=== PATIENT | male | born 1960 | race Caucasian/White ===

== ENCOUNTER → 2022-01-12 08:54 | Outpatient (BNVA) | payer MEDICAID, SELFPAY | PROVIDERS: Family Provider Internal Medicine; Visit Provider Family Medicine | DX: R06.00 Dyspnea, unspecified (principal); R07.9 Chest pain, unspecified | CPT/HCPCS: 71046 ==

== ENCOUNTER 2022-01-12 09:46 | Inpatient (IN) | payer MEDICAID, SELFPAY ==
[2022-01-12] VITALS (12 sets, daily range): BP systolic 116–148; BP diastolic 66–86; PULSE 71–98; RESP 13–27; TEMP 36.4–37.4; O2SAT 98–100; BMI 16.9; BMI 16.8
--- NOTE | 2022-01-12 10:28 | ECG_ITS ---
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 Measurements Intervals [place] Rate: 75 P: 89 NM: 151 QRS: 111 QRSD: 153 T: 68 QT: 453 QTc: 508 Interpretive Statements SINUS RHYTHM WITH OCCASIONAL SUPRAVENTRICULAR PREMATURE COMPLEXES POSSIBLE LEFT ATRIAL ENLARGEMENT [-0.1mV P-WAVE IN V1/V2] INTRAVENTRICULAR CONDUCTION DELAY [130+ ms QRS DURATION] Compared to ECG 03/25/2016 07:43:57 Intraventricular conduction delay now present Sinus bradycardia no longer present Sinus arrhythmia no longer present Incomplete right bundle-branch block no longer present Electronically Signed On 01-12-2022 21:36:55 CDT by Ryne Gonzales M.D. [id number]
--- NOTE | 2022-01-12 10:31 | PC.PHAR ---
pt states he takes care of his own medications-pt states he only takes aspirin three times a week-pt states sometimes he will take asprin 81mg tab or 325mg tab pt states sometimes its mon,wed and fri-
[2022-01-12 10:35] LABS: Basophils % 0.4 %; Eosinophils # 0.3 10^3/uL (0.0-0.8); Eosinophils % 3.4 %; Hematocrit 45.5 % (42.0-52.0); Hemoglobin 15.1 g/dL (11.7-16.6); Lymphocytes # 1.3 10^3/uL (0.8-4.8); Mean Corpuscular HGB Conc 33.2 g/dL (30.0-36.0); Mean Corpuscular Hemoglobin 29.6 pg (28.0-34.0); Mean Corpuscular Volume 89.2 fl (80-94); Mean Platelet Volume 9.5 fL (7.4-10.4); Monocytes # 0.6 10^3/uL (0.2-0.9); Monocytes % 7.4 %; Neutrophils # 5.24 10^3/uL (1.8-7.7); Neutrophils % 70.5 %; Nucleated Red Blood Cells % 0 %; Platelet Count 261 10^3/cmm (130-400); Red Cell Distribution Width 12.8 % (12.1-15.1); White Blood Count 7.4 10^3/uL (4.0-10.0)
[2022-01-12 10:47] LABS: Partial Thromboplastin Time 31.5 SECONDS (23.9-36.7)
[2022-01-12 10:54] LABS: Troponin(5th) Baseline 6 ng/L (0-15)
[2022-01-12 10:56] LABS: Alanine Aminotransferase 12 U/L (0-41); Albumin Level 4.6 g/dL (3.5-5.2); Alkaline Phosphatase 102 IU/L (40-130); Anion Gap 13.9 (5-19); Aspartate Amino Transferase 16 U/L (0-40); Blood Urea Nitrogen 11 mg/dL (6-20); Calcium 9.3 mg/dL (8.5-10.5); Carbon Dioxide 28 mmol/L (22-29); Chloride 101 mmol/L (98-107); Globulin 2.8 g/dL (1.3-4.6); Glomerular Filtration Rate 137.9 mL/min (90-130); Glucose 86 mg/dL (65-115); Osmolality Calculated 287 mOsm/kg (285-295); Potassium 3.9 mmol/L (3.5-5.1); Sodium 139 mmol/L (136-145); Total Bilirubin 0.3 mg/dL (0.15-1.2); Total Protein 7.4 g/dL (6.6-8.7)
--- NOTE | 2022-01-12 11:35 | CT_ITS ---
WS: [id number] CT CHEST WITHOUT INTRAVENOUS CONTRAST HISTORY: Right-sided pneumothorax, chest pain for 2 weeks. TECHNIQUE: Contiguous 5 mm axial imaging performed on the thorax. Coronal and sagittal reformats are submitted. All CT scans at [facility] use at least one of these dose optimization techniques: automated exposure control; mA and/or kV adjustment per patient size (includes targeted exams where dose is matched to clinical indication); or iterative reconstruction. CONTRAST: None DLP: 399.63 mGy.cm COMPARISON: Radiograph 01/12/2022 Lungs and central airway: Changes of emphysema are noted bilaterally. Bullous and bleb formation. Enedina pical pleural thickening and nodularity. There is a more focal nodular thickening at the RIGHT apex m easuring 16 x 13 mm. RIGHT pneumothorax without midline shift from approximately 20-25%. Focal area o f increased soft tissue is minimal along the anterior major fissure measuring 19 x 9 mm. There are a few tree-in-bud airspace opacifications within the LEFT upper lower lobes which will need further evaluation long-term. Pleura: No effusions. Heart and pericardium: Normal size heart with no pericardial effusion. Mediastinum and shanthi: Small mediastinal and hilar lymph nodes. No adenopathy. Vessels: Mild atherosclerosis aorta. Coronary artery atherosclerosis. Prior CABG. Chest wall and lower neck: No soft tissue masses. Upper abdomen: Negative. Osseous structures: No destructive process. CT/CT chest wo con [id number] IMPRESSION: 1. RIGHT pneumothorax without tension, 20-25%. 2. Moderate to severe emphysema. 3. Pleural nodule at the RIGHT apex measures 16 x 13 mm. Additional focal soft tissue nodule along the inferior RIGHT major fissure measuring 19 x 9 mm. Both of these areas will need further evaluation for possible neoplasm. There is ad ditional pleural thickening at the RIGHT apex which appears more scarlike and f ibrotic. PET/CT imaging may be necessary for further evaluation. 4. Prior CABG. 5. There are a few scattered nodules throughout the LEFT lung in a distributio n suggesting tree-in-bud opacification may be related to mucous plugging or dis diana airways disease. These areas will also need long-term follow-up.
--- NOTE | 2022-01-12 11:48 | P.HP_ITS ---
Providers/Chief Complaint Admitting Physician: Aaron Young MD, hospitalist Chief Complaint: Doctor sent over for lung complication History of Present Illness Levi Madrid is a 61 year old male who presents to the hospital with com plaints of chest discomfort. He reports it is right-sided, and low. It is associated with shortness of breath and came on rather severely around 430 this morning. He has not been ill lately with any cough or fever. He reports some intermittent chest discomfort over the last several weeks, on the right side as well but not this bad. He denies any nausea, vomiting, diarrhea, blood in stool, recent trauma. He occasionally has palpitations. Review of Systems General: Reports: 10 or more systems reviewed and unremarkable except in HPI and below Const: Denies: fever(s) or chills Eyes: Denies: change in vision ENMT: Denies: throat pain Card: Reports: chest pain and palpitations Resp: Reports: dyspnea and non-productive cough GI: Denies: abdominal pain, hematochezia or melena : Reports: urinary dribbling; Denies: flank pain Musc: Denies: neck pain Skin/Breast: Denies: rash Neuro: Denies: headache(s) Psych: Denies: anxiety or depression Endo: Denies: polyuria Chung/Lymph: Denies: easy bruising All/Imm: Denies: urticaria Medications/Allergies Home Medications Medication Instructions Recorded Confirmed Last Taken Type aspirin 81 mg tablet,delayed 81 - 324 mg PO .THREE TIMES A WEEK 01/12/22 01/12/22 01/07/22 History release Allergies Allergy/AdvReac Type Severity Reaction Status Date / Time No Known Allergies Allergy Verified 01/12/22 10:30 PFSH Acute PFSH: Medical History (Updated 01/12/22 @ 11:57 by Aaron Young MD) COPD (chronic obstructive pulmonary disease) Coronary artery disease Surgical History (Updated 01/12/22 @ 11:50 by Aaron Young MD) History of coronary artery bypass graft Social History (Updated 01/12/22 @ 11:51 by Aaron Young MD) Smoking and tobacco status: current every day smoker Alcohol intake: never Substance/Drug Use: never Vitals/I&O/Wt Last Vital Signs Temp 97.6 F 01/12/22 09:59 Pulse 72 01/12/22 09:59 Resp 13 01/12/22 09:59 BP 148/83 01/12/22 09:59 Pulse Ox 100 01/12/22 09:59 Weight last 48 hrs Weight 56.699 kg Physical Exam Narrative: General exam demonstrates a white male, in no distress HEENT: Atraumatic normocephalic. Pupils equally round. Oropharynx clear. Neck is supple no lymphadenopathy or thyromegaly Cardiovascular regular rate and rhythm, no murmur Lungs clear no wheezing or crackles. Diminished breath sounds are noted bilaterally Abdomen is soft nontender positive bowel sounds. No obvious organomegaly exam is deferred Extremities no cyanosis clubbing or edema, cap refill brisk Skin no rash Neuro no obvious focal deficits. Data : 01/12/22 10:25 01/12/22 10:25 Other Labs: LFTs are normal. Calcium is 9.3. Troponin 6. Chest x-ray right-sided pneumothorax, around 20% EKG demonstrates sinus rhythm, right axis deviation, left atrial enlargement, few PACs A&P Assessment and plan (1) Pneumothorax: Patient with spontaneous pneumothorax, right chest. N.p.o. currently Pulmonary consult, may need vent CT chest pending Status: Acute (2) Palpitations: Patient with history of palpitations. Keep on telemetry here. Check echocardiogram Status: Acute (3) COPD (chronic obstructive pulmonary disease): DuoNeb as needed Budesonide twice daily. Status: Acute (4) Coronary artery disease: Past history of bypass surgery. Initiate aspirin daily. Lipid profile tomorrow Status: Acute Plan Full code SCDs for DVT prophylaxis. Potential for anticoagulation with Lovenox or heparin after Thora vent placement if okay with pulmonary. Attestations Medical Necessity Statement*: Will need greater than 2 midnight stay for evaluation and treatment of pneumothorax, palpitations Coding Level of Care Code Acute Sr Risk Management Consultant for [facility] F[facility] Diagnoses Pneumothorax J93.9 Palpitations R00.2 COPD (chronic obstructive pulmonary disease) J44.9 Coronary artery disease I25.10
[2022-01-12 12:27] LABS: Thyroid Stimulating Hormone 1.01 uIU/mL (0.27-4.20)
--- NOTE | 2022-01-12 12:28 | ECG_ITS ---
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 Measurements Intervals [place] Rate: 67 P: 87 IN: 156 QRS: 113 QRSD: 149 T: 80 QT: 468 QTc: 496 Interpretive Statements SINUS RHYTHM WITH OCCASIONAL VENTRICULAR PREMATURE COMPLEXES RIGHT AXIS DEVIATION [QRS AXIS > 100] RIGHT BUNDLE BRANCH BLOCK [120+ ms QRS DURATION, UPRIGHT V1, 40+ ms S IN I/aVL/V4/V5/V6] Compared to ECG 01/12/2022 10:37:27 Ventricular premature complex(es) now present Right-axis deviation now present Right bundle-branch block now present Intraventricular conduction delay no longer present Electronically Signed On 01-12-2022 21:41:34 CDT by Ryne Gonzales M.D. [id number]
[2022-01-12 13:26] LABS: Troponin 5 2HR 7.54 ng/L (0-15)
[2022-01-12 14:01] LABS: Troponin 5 2HR Delta 1.54 ABS# (0-10)
--- NOTE | 2022-01-12 14:14 | ED_ITS ---
HPI - SOB/Dyspnea General: Chief Complaint: Shortness of Breath/Dyspnea Stated Complaint: Doctor sent over for lung complication Time Seen by Provider: 01/12/22 09:55 Source: patient Mode of arrival: ambulatory Limitations: no limitations History of Present Illness: HPI Narrative: 61-year-old male presents emergency room with complaints of shortness of breath and pain with inspiration. Last week or so patient has intermittently had shortness of breath and chest discomfort with palpitations and this morning a few hours prior to arrival had sudden onset of worsening shortness of breath and increasing of chest pain. Patient has known history of coronary disease with previous bypass as well as angiography with stenting. Patient proceeded to his primary care doctor took chest x-ray noted to have a 20 to 25% pneumothorax confirmed with radiology. Patient referred to the emergency room. On arrival here he is ambulatory without hypoxia on room air. He has no known history of previous spontaneous pneumothorax MD elicited complaint: shortness of breath, cough, pain with inspiration and chest pain Pertinent past history: COPD Onset (ago): hour(s) Timing: constant Severity: moderate Exacerbating factors: exertion, coughing and inspiration Relieving factors: rest and upright position Known history of: COPD Associated symptoms: Reports chest pain, cough and palpitations; Deny abdominal pain, chest congestion, diaphoresis, dizziness, extremity pain, fever(s), hemoptysis, lightheadedness, myalgias, nausea, orthopnea, paresthesias, polydipsia, polyuria, rash, sense of impending doom, syncope or vomiting Treatment prior to arrival: none Review of Systems Const: Denies: fever(s), chills or diaphoresis ENMT: Denies: throat pain, ear or mastoid pain, nasal discharge or nasal criss estion Card: Reports: chest pain and palpitations; Denies: lightheadedness, syncope or orthopnea Resp: Reports: dyspnea and non-productive cough; Denies: hemoptysis or chest congestion GI: Denies: abdominal pain, nausea or vomiting : Denies: flank pain, dysuria, urinary frequency or urinary urgency Musc: Denies: extremity pain Skin/Breast: Denies: rash or pruritus Neuro: Denies: dizziness Endo: Denies: polyuria or polydipsia PFS ED PFSH: Medical History COPD (chronic obstructive pulmonary disease) Coronary artery disease Surgical History History of coronary artery bypass graft Social History Smoking and tobacco status: current every day smoker Alcohol intake: never Substance/Drug Use: never Physical Exam Const: COMMON NORMALS: no acute distress GENERAL APPEARANCE: cooperative and comfortable ORIENTATION/CONSCIOUSNESS: Yes awake, Yes oriented to person, Yes oriented to place and Yes oriented to time HENMT: COMMON NORMALS: normocephalic, atraumatic and hearing grossly normal bilaterally HEAD & SCALP: normocephalic and atraumatic Neck/C-Spine: COMMON NORMALS: no JVD Chest: COMMONS NORMALS: normal inspection of the chest Resp: COMMON NORMALS: normal respiratory effort, No retractions and No use of accessory muscles AUSCULTATION: diminished lung sounds on the right Cardio: COMMON NORMALS: no JVD, regular rate, regular rhythm and No murmurs present (Cardio) RATE: regular rate RHYTHM: regular rhythm GI: COMMON NORMALS: Soft to palpation and No hepatosplenomegaly present AUSCULTATION: Yes normoactive bowel sounds PALPATION: Yes Soft to palpation, No Tenderness to palpation present (GI), No Guarding due to palpation present (GI) and Yes No hepatosplenomegaly present Extremity: COMMON NORMALS: normal to inspection, capillary refill normal, no clubbing, cyanosis or edema, no calf tenderness and no pedal edema Neuro: SENSORIUM/ORIENTATION: Yes oriented to person, Yes oriented to place and Yes oriented to time Skin: COMMON NORMALS: no rashes or lesions noted GENERAL SKIN EXAM: no rashes or lesions noted Course Vital Signs: Vital signs: Vital Signs Temperature 97.6 F 01/12/22 09:59 Pulse Rate 75 01/12/22 12:34 Respiratory Rate 16 01/12/22 12:34 Blood Pressure 142/86 01/12/22 12:34 Pulse Oximetry 100 01/12/22 12:34 MDM - SOB/Dyspnea Medical Decision Making 2023% pneumothorax on plain chest x-ray discussed with hospitalist as well as with pulmonology on-call they requested a CT they are planning on placing a thoracic vent. Given the patient's history and reports of palpitations will place him on observation for serial cardiac enzymes initial EKG does not show any acute changes Medical Records I reviewed the patient's medical records. Lab Data I reviewed the patient's lab results. : 01/12/22 10:25 01/12/22 10:25 Labs/Radiology: Radiology Impressions Chest CT 01/12/22 11:35 IMPRESSION: 1. RIGHT pneumothorax without tension, 20-25%. 2. Moderate to severe emphysema. 3. Pleural nodule at the RIGHT apex measures 16 x 13 mm. Additional focal soft tissue nodule along the inferior RIGHT major fissure measuring 19 x 9 mm. Both of these areas will need further evaluation for possible neoplasm. There is additional pleural thickening at the RIGHT apex which appears more scarlike and fibrotic. PET/CT imaging may be necessary for further evaluation. 4. Prior CABG. 5. There are a few scattered nodules throughout the LEFT lung in a distribution suggesting tree-in-bud opacification may be related to mucous plugging or distal airways disease. These areas will also need long-term follow-up. Laboratory Results WBC 7.4 10^3/uL (4.0-10.0) 01/12/22 10:25 RBC 5.10 10^6/uL (4.1-5.3) 01/12/22 10:25 Hgb 15.1 g/dL (11.7-16.6) 01/12/22 10:25 Hct 45.5 % (42.0-52.0) 01/12/22 10:25 MCV 89.2 fl (80-94) 01/12/22 10:25 MCH 29.6 pg (28.0-34.0) 01/12/22 10:25 MCHC 33.2 g/dL (30.0-36.0) 01/12/22 10:25 RDW 12.8 % (12.1-15.1) 01/12/22 10:25 Plt Count 261 10^3/cmm (130-400) 01/12/22 10:25 MPV 9.5 fL (7.4-10.4) 01/12/22 10:25 Neut % (Auto) 70.5 % 01/12/22 10:25 Lymph % (Auto) 18.0 % 01/12/22 10:25 [place] % (Auto) 7.4 % 01/12/22 10:25 Eos % (Auto) 3.4 % 01/12/22 10:25 Baso % (Auto) 0.4 % 01/12/22 10:25 Neut # (Auto) 5.24 10^3/uL (1.8-7.7) 01/12/22 10:25 Lymph # (Auto) 1.3 10^3/uL (0.8-4.8) 01/12/22 10:25 [place] # (Auto) 0.6 10^3/uL (0.2-0.9) 01/12/22 10:25 Eos # (Auto) 0.3 10^3/uL (0.0-0.8) 01/12/22 10:25 Baso # (Auto) 0.0 10^3/uL (0.0-0.1) 01/12/22 10:25 Nucleated RBC % (auto) 0 % 01/12/22 10:25 Nucleated RBCs # 0.0 /100WBC 01/12/22 10:25 PT 13.50 SECONDS (12.1-14.9) 01/12/22 10:25 INR 1.00 (0.8-1.2) 01/12/22 10:25 APTT 31.5 SECONDS (23.9-36.7) 01/12/22 10:25 Sodium 139 mmol/L (136-145) 01/12/22 10:25 Potassium 3.9 mmol/L (3.5-5.1) 01/12/22 10:25 Chloride 101 mmol/L (98-107) 01/12/22 10:25 Carbon Dioxide 28 mmol/L (22-29) 01/12/22 10:25 Anion Gap 13.9 (5-19) 01/12/22 10:25 BUN 11 mg/dL (6-20) 01/12/22 10:25 Creatinine 0.6 mg/dL (0.7-1.2) L 01/12/22 10:25 GFR Calculation 137.9 mL/min (90-130) H 01/12/22 10:25 Glucose 86 mg/dL (65-115) 01/12/22 10:25 Calculated Osmolality 287 mOsm/kg (285-295) 01/12/22 10:25 Calcium 9.3 mg/dL (8.5-10.5) 01/12/22 10:25 Magnesium 2.0 mg/dL (1.7-2.3) 01/12/22 10:25 Total Bilirubin 0.3 mg/dL (0.15-1.2) 01/12/22 10:25 AST 16 U/L (0-40) 01/12/22 10:25 ALT 12 U/L (0-41) 01/12/22 10:25 Alkaline Phosphatase 102 IU/L (40-130) 01/12/22 10:25 Troponin T Baseline 6 ng/L (0-15) 01/12/22 10:25 Total Protein 7.4 g/dL (6.6-8.7) 01/12/22 10:25 Albumin 4.6 g/dL (3.5-5.2) 01/12/22 10:25 Globulin 2.8 g/dL (1.3-4.6) 01/12/22 10:25 TSH 1.01 uIU/mL (0.27-4.20) 01/12/22 10:25 Discharge Plan Discharge Patient Disposition: Admitted As Inpatient Admit Provider: Aaron Young Clinical Impression: Spontaneous pneumothorax, COPD (chronic obstructive pulmonary disease), Cor onary artery disease, Palpitations, Chest pain Condition: Stable Coding Level of Care Code ED 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
--- NOTE | 2022-01-12 14:25 | USCV_ITS ---
Levi Madrid Age: 61 Gender: M : 1960 Exam Date: 01/12/2022 14:38 Ordering Phys: Aaron Young MD Technologist: Ronan Herbert Exam Location: [facility] [place] Indication: mi BP: 136 / 86 HR: 54 Rhythm: Sinus Technical Quality: Adequate MEASUREMENTS (Male / Female) Normal Values 2D ECHO LV Diastolic Diameter PLAX 4.7 cm 4.2 - 5.9 / 3.9 - 5.3 cm LV Systolic Diameter PLAX 4.0 cm IVS Diastolic Thickness 1.1 cm 0.6 - 1.0 / 0.6 - 0.9 cm IVS Systolic Thickness 1.1 cm LVPW Diastolic Thickness 1.0 cm 0.6 - 1.0 / 0.6 - 0.9 cm LVPW Systolic Thickness 1.2 cm LVOT Diameter 2.1 cm LV Ejection Fraction 2D Teich 18.9 % LA Diameter 2.5 cm Aorta at Sinotubular Diameter 2.5 cm IVC Diameter 1.2 cm M-MODE Aortic Annulus Diameter 3.2 cm LA Ao Ratio MM 0.9 MV E Point Septal Separation 1.4 cm DOPPLER AV Peak Velocity 108.7 cm/s LVOT Peak Velocity 84.0 cm/s AV Area Cont Eq vti 2.8 cm squared AV Area Cont Eq pk 2.7 cm squared MV Area PHT 5.0 cm squared Mitral E to A Ratio 1.1 MV E' Velocity 39.5 cm/s Mitral E to MV E' Ratio 9.5 Mitral E to LV E' Lateral Ratio 10.9 Mitral E to LV E' Septal Ratio 8.5 TR Peak Velocity 132.7 cm/s TR Peak Gradient 7.0 mmHg TV Peak E Velocity 72.0 cm/s Right Atrial Pressure 3.0 mmHg Pulmonary Artery Systolic Pressu 10.0 mmHg PV Peak Velocity 137.0 cm/s FINDINGS Left Ventricle Normal left ventricular size. LV systolic function is severely reduced with EF of 15-20%. Severe global hypokinesis. Septal motion is consistent with prior cardiac surgery. Apical thickening is noted Right Ventricle The right ventricle is mildly hypokinetic Right Atrium The right atrium is normal in size. Left Atrium The left atrium is normal in size. Mitral Valve Structurally normal mitral valve without significant stenosis or prolapse. There is no mitral regurgitation. Aortic Valve Aortic valve thickening is seen. No stenosis is noted Tricuspid Valve Structurally normal tricuspid valve without significant stenosis or regurgitation. Insufficient TR jet to calculate RVSP Pulmonic Valve Grossly normal Pericardium Normal pericardium without effusion. Aorta Normal ascending aorta dimension. CONCLUSIONS LV systolic function is severely reduced with EF of 15-20%. Apical thickening is seen. Can not rule out LV thrombus. Recommend limited echo with contrast to rule out LV thrombus RV is mildly hypokinetic No significant valvular disease seen Compared to prior echocardiogram from 12/22/2014, LV systolic function is significantly decreased now and is 15-20% ( from 40- 45% before) Sandro Macias MD (Electronically Signed) Final Date: 13 Jan 2022 07:56 S
[2022-01-12] MEDS: D5-NS 0.45% + KCL 20 mEq 20 MEQ/1,000 ML BAG 100 MEQ IV (15:45)
--- NOTE | 2022-01-12 16:28 | ECG_ITS ---
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 Measurements Intervals [place] Rate: 65 P: 88 OK: 153 QRS: 114 QRSD: 149 T: 70 QT: 444 QTc: 464 Interpretive Statements Normal sinus rhythm with right bundle branch block ABNORMAL RHYTHM ECG Compared to ECG 01/12/2022 13:37:04 Sinus rhythm no longer present Ventricular premature complex(es) no longer present Right-axis deviation no longer present Right bundle-branch block no longer present Electronically Signed On 01-12-2022 21:51:01 CDT by Ryne Gonzales M.D. [id number]
[2022-01-12 17:07] LABS: Troponin 5 6HR 8.84 ng/L (0-15)
[2022-01-12 17:17] LABS: Troponin 5 6HR Delta 2.84 ng/L (0-12)
[2022-01-12 17:26] LABS: Add Urine Microscopic? NO; Charge for UA Resulting for Rev
[2022-01-12 17:28] LABS: Bilirubin Urine Neg (Negative); Blood Urine Neg (Negative); Glucose Urine UA Norm (Normal); Ketones Urine Negative (Negative); Leukocyte Esterase Urine Negative (Negative); Nitrate Urine Negative (Negative); Protein Urine Neg (Negative); Specific Gravity, Urine 1.015 (1.005-1.030); Urine Appearance Clear (CLEAR); Urine Color Yellow (Yellow); Urobilinogen Urine Norm (Negative); pH Urine 7 (5-7)
--- NOTE | 2022-01-12 17:42 | P.CONIM_ITS ---
Providers/Reason For Consult Consulting Physician/Specialty*: Guero Chiang MD/Pulmonary Critical Care Reason for Consult*: Right pneumothorax Requesting Physician: Tomas Barahona MD Attending Physician: Aaron Young MD History of Present Illness History of Present Illness Levi Madrid is a 61 year old male with past medical history of COPD, CAD s/p CABG sent by his PCP today morning to ER for pleuritic chest pain as well as right upper quadrant pain that began at 4:30 AM. Patient denied any shortness of breath, fever, chills, cough, nausea, vomiting, diarrhea, trauma. On arrival patient had a chest x-ray around 9 AM which showed 20% right-sided pneumothorax. Patient did not appear in respiratory distress-he was placed on 1 L nasal cannula saturations 97%. Subsequent chest CT performed after 3 hours at 12 PM percent right pneumothorax with tension. There is moderate to severe emphysema. There is a pleural nodule at the right apex ?measures 16 x 13 mm. A dditional focal soft tissue nodule along the inferior RIGHT major fissure measuring 19 x 9 mm. Both of these areas will need further evaluation for possible neoplasm. There is additional pleural thickening at the RIGHT apex which appears more scarlike and fibrotic. Pulmonary consulted for right-sided pneumothorax. Patient had a three-vessel CABG in on 05/16/2015. Postoperatively he did well from a hemodynamic standpoint. He was noted to have bilateral apical pneumothoraces. Right was larger than left. These were observed for several days, though the right became larger and therefore on May 21 a right thoracic vent was placed. There was minimal right pneumothorax left. The small left apical pneumothorax has been very stable. His ICU stay was uneventful other than the pulmonary issues which have been described. While on the [facility] he continues to do well. The right thoracic vent was removed on the day of discharge 05/25/2015 and his chest x-ray has remained stable with small apical pneumothoraces. Patient seen in the emergency room and again in cardiac stepdown unit Lying comfortably in his bed watching television -complaining some right-sided chest discomfort denied any respiratory distress Reported smoking 1 pack/day for several years Medications/Allergies Home Medications Medication Instructions Recorded Confirmed Last Taken Type aspirin 81 mg tablet,delayed 81 - 324 mg PO .THREE TIMES A WEEK 01/12/22 01/12/22 01/07/22 History release Allergies Allergy/AdvReac Type Severity Reaction Status Date / Time No Known Allergies Allergy Verified 01/12/22 10:30 PFSH Acute PFSH: Medical History COPD (chronic obstructive pulmonary disease) Coronary artery disease Surgical History History of coronary artery bypass graft Social History Smoking and tobacco status: current every day smoker Alcohol intake: never Substance/Drug Use: never Vitals/I&O/Wt Last Vital Signs Temp 97.5 F L 01/12/22 15:53 Pulse 80 01/12/22 16:00 Resp 17 01/12/22 16:00 BP 117/76 01/12/22 15:53 Pulse Ox 98 01/12/22 16:00 01/12/22 01/12/22 01/12/22 06:59 14:59 22:59 Output Total 100 / 100 Balance -100 / -100 Weight last 48 hrs Weight 124 lb Weight 125 lb Physical Exam Narrative: General: alert, NAD HEENT: conj clear, EOMI, PERRL, mmm, Neck: supple, no meningismus Heme: no cervical LAP Pulmonary: Reduced breath sounds on right upper lung Cardiovascular: rrr, nl s1s2, no mrg Abdomen: soft, nt, nd, no r/g, bs+ Extremities: pulses +, no edema, no c/c : no CVA tenderness Skin: intact, no rash MSK: no back or neck pain Neurologic: grossly intact Data : 01/12/22 10:25 01/12/22 10:25 Other Labs: Radiology Impressions Chest CT 01/12/22 11:35 IMPRESSION: 1. RIGHT pneumothorax without tension, 20-25%. 2. Moderate to severe emphysema. 3. Pleural nodule at the RIGHT apex measures 16 x 13 mm. Additional focal soft tissue nodule along the inferior RIGHT major fissure measuring 19 x 9 mm. Both of these areas will need further evaluation for possible neoplasm. There is additional pleural thickening at the RIGHT apex which appears more scarlike and fibrotic. PET/CT imaging may be necessary for further evaluation. 4. Prior CABG. 5. There are a few scattered nodules throughout the LEFT lung in a distribution suggesting tree-in-bud opacification may be related to mucous plugging or distal airways disease. These areas will also need long-term follow-up. Laboratory Results WBC 7.4 10^3/uL (4.0-10.0) 01/12/22 10:25 RBC 5.10 10^6/uL (4.1-5.3) 01/12/22 10:25 Hgb 15.1 g/dL (11.7-16.6) 01/12/22 10:25 Hct 45.5 % (42.0-52.0) 01/12/22 10:25 MCV 89.2 fl (80-94) 01/12/22 10:25 MCH 29.6 pg (28.0-34.0) 01/12/22 10:25 MCHC 33.2 g/dL (30.0-36.0) 01/12/22 10:25 RDW 12.8 % (12.1-15.1) 01/12/22 10:25 Plt Count 261 10^3/cmm (130-400) 01/12/22 10:25 MPV 9.5 fL (7.4-10.4) 01/12/22 10:25 Neut % (Auto) 70.5 % 01/12/22 10:25 Lymph % (Auto) 18.0 % 01/12/22 10:25 [place] % (Auto) 7.4 % 01/12/22 10:25 Eos % (Auto) 3.4 % 01/12/22 10:25 Baso % (Auto) 0.4 % 01/12/22 10:25 Neut # (Auto) 5.24 10^3/uL (1.8-7.7) 01/12/22 10:25 Lymph # (Auto) 1.3 10^3/uL (0.8-4.8) 01/12/22 10:25 [place] # (Auto) 0.6 10^3/uL (0.2-0.9) 01/12/22 10:25 Eos # (Auto) 0.3 10^3/uL (0.0-0.8) 01/12/22 10:25 Baso # (Auto) 0.0 10^3/uL (0.0-0.1) 01/12/22 10:25 Nucleated RBC % (auto) 0 % 01/12/22 10:25 Nucleated RBCs # 0.0 /100WBC 01/12/22 10:25 PT 13.50 SECONDS (12.1-14.9) 01/12/22 10:25 INR 1.00 (0.8-1.2) 01/12/22 10:25 APTT 31.5 SECONDS (23.9-36.7) 01/12/22 10:25 Sodium 139 mmol/L (136-145) 01/12/22 10:25 Potassium 3.9 mmol/L (3.5-5.1) 01/12/22 10:25 Chloride 101 mmol/L (98-107) 01/12/22 10:25 Carbon Dioxide 28 mmol/L (22-29) 01/12/22 10:25 Anion Gap 13.9 (5-19) 01/12/22 10:25 BUN 11 mg/dL (6-20) 01/12/22 10:25 Creatinine 0.6 mg/dL (0.7-1.2) L 01/12/22 10:25 GFR Calculation 137.9 mL/min (90-130) H 01/12/22 10:25 Glucose 86 mg/dL (65-115) 01/12/22 10:25 Calculated Osmolality 287 mOsm/kg (285-295) 01/12/22 10:25 Calcium 9.3 mg/dL (8.5-10.5) 01/12/22 10:25 Magnesium 2.0 mg/dL (1.7-2.3) 01/12/22 10:25 Total Bilirubin 0.3 mg/dL (0.15-1.2) 01/12/22 10:25 AST 16 U/L (0-40) 01/12/22 10:25 ALT 12 U/L (0-41) 01/12/22 10:25 Alkaline Phosphatase 102 IU/L (40-130) 01/12/22 10:25 Troponin T Baseline 6 ng/L (0-15) 01/12/22 10:25 Troponin T 120 Minute 7.54 ng/L (0-15) 01/12/22 12:45 Delta Troponin T 1.54 ABS# (0-10) 01/12/22 12:45 Troponin T Hi Sens 6Hr 8.84 ng/L (0-15) 01/12/22 16:30 Troponin T Hi Sens 6Hr Delta 2.84 ng/L (0-12) 01/12/22 16:30 Total Protein 7.4 g/dL (6.6-8.7) 01/12/22 10:25 Albumin 4.6 g/dL (3.5-5.2) 01/12/22 10:25 Globulin 2.8 g/dL (1.3-4.6) 01/12/22 10:25 TSH 1.01 uIU/mL (0.27-4.20) 01/12/22 10:25 Urine Color Yellow (Yellow) 01/12/22 14:17 Urine Appearance Clear (CLEAR) 01/12/22 14:17 Urine pH 7 (5-7) 01/12/22 14:17 Ur Specific [place] 1.015 (1.005-1.030) 01/12/22 14:17 Urine Protein Neg (Negative) 01/12/22 14:17 Urine Glucose (UA) Norm (Normal) 01/12/22 14:17 Urine Ketones Negative (Negative) 01/12/22 14:17 Urine Blood Neg (Negative) 01/12/22 14:17 Urine Nitrate Negative (Negative) 01/12/22 14:17 Urine Bilirubin Neg (Negative) 01/12/22 14:17 Urine Urobilinogen Norm mg/dL (Negative) 01/12/22 14:17 Ur Leukocyte Esterase Negative (Negative) 01/12/22 14:17 A&P Assessment and plan (1) Spontaneous pneumothorax: Status: Acute (2) COPD (chronic obstructive pulmonary disease): Status: Acute (3) Coronary artery disease: Status: Acute (4) Right-sided chest pain: Status: Acute Plan #Spontaneous secondary pneumothorax patient with underlying bullous emphysema #History of bilateral pneumothoraxes 3 Days after CABG-requiring thoravent for evacuation of right neumothorax - chest x ray today morning : 20% right apical ptx - CT chest 3 hrs later - No significant change in 20-25% ptx - there appears to be pleural stranding - Repeat CXR in the evening stable - pt is hemodynamically stable and comfortably breathing on 2L nc saturating >90% - I will monitor with serial chest x ray in am - if pt decompensates during night - increasing dyspnea, chest pain or worseing saturations or vitals - we will do stat CXR and consider chest tube placement - pt and RN understand the plan and agree with plan -Morphine every 4 hours as needed/Percocet every 4 hours as needed #CT showed Pleural nodule at the RIGHT apex measures 16 x 13 mm. Additional focal soft tissue nodule along the inferior RIGHT major fissure measuring 19 x 9 mm. There is additional pleural thickening at the RIGHT apex which appears more scarlike and fibrotic. - PET/CT imaging as out pt and will plan for bronchoscopy and biopsies as out pt, # COPD in chronic smoker #Exertional shortness of breath and patient with significant smoking history- Possible COPD and CAD #Significant cardiac history with CAD s/p 3 Vessel CABG 2014 - [facility] 2-no reported exacerbations-group B -PFTs/6-minute walk test as out pt -DuoNebs every 8 hours scheduled while in the hospital -Given prescription for Spiriva 2.5 MCG 2 puffs daily as out pt -Counseled to quit smoking-patient agreed to try to quit -Recommended to stay up-to-date with flu shot and pneumonia at the office -We will refer to pulmonary rehab post PFTs -Follows up with cardiology for CABG Medical condition, labs, investigations, medications, counseling regarding medication compliance, side effects, importance of follow-up appointments, smo anisha-its adverse effects and importance of cessation and plan of care-everything explained in detail to the patient. Patient verbalized understanding and agreed with the plan of care. Recommendations conveyed to hospitalist, RN taking care of the patient - Consult Attestations Medical Necessity Statement: Spontaneous right-sided pneumothorax-need close monitoring for the next 24 to 48 hours Time Spent in Patient Care: Greater than 35 minutes (>than 50% of time spent in counselling and/or direct pt care on unit) . Critical Care Time: The high probability of a clinically significant, sudden or life threatening deterioration of the patient's [pulmonary system(s) required my full and direct attention, intervention and personal management. The critical care time is as shown. This time is in addition to time spent performing any reported procedures but includes the following: [x] Data and vital sign review and interpretation [x] Patient assessment, examination and intervention [x] Documentation [x] Medication orders and management Critical Care Time (min): 55 Coding Level of Care Code New Pt Acute Rug Renovator for Chg Fwd Patient Type New History Comprehensive Exam Comprehensive Medical Decision Making Moderate Complexity Diagnoses Spontaneous pneumothorax J93.83 COPD (chronic obstructive pulmonary disease) J44.9 Coronary artery disease I25.10 Right-sided chest pain R07.9 Time Spent (min) 55
[2022-01-12] MEDS: D5-NS 0.45% + KCL 20 mEq 20 MEQ/1,000 ML BAG 50 MEQ IV (18:55)
--- NOTE | 2022-01-12 19:34 | PC.NURSE ---
Admit Note Patient admitted to room 103 from ER via wheelchair. Covering service notified. Patient presents with shortness of breath and difficulty breathing. Orders reviewed & will continue to monitor. Patient and/or medical representative oriented to environment, equipment, and informed of the following as found in the admission booklet: patient rights & responsibilities, visitor policy, hand and respiratory hygiene practice,call light provided. Other education includes: portable chest xray, master yacht consult and ivf. Patient and/or medical representative verbalizes understanding.
--- NOTE | 2022-01-12 20:00 | XR_ITS ---
WS: [id number] XR chest 1V portable [id number] REASON FOR EXAM: ff-up pneumothorax FINDINGS: The right pneumothorax demonstrated 01/12/2022 at 9:11 AM has not changed significantly in volume. No other interval change or new finding is identified. XR/XR chest 1V portable [id number] IMPRESSION: Stable abnormal chest as above.
[2022-01-12] MEDS: budesonide 0.5 mg/2 mL Neb INHALATION (21:00)
[2022-01-12] MEDS: ipratropium-albuterol 3 mL Neb INHALATION (21:00)
[2022-01-13] VITALS (17 sets, daily range): BP systolic 98–138; BP diastolic 64–81; PULSE 68–89; RESP 16–24; TEMP 36.6–37; O2SAT 93–97
--- NOTE | 2022-01-13 03:50 | PC.NURSE ---
Patient has slept well this night. No complaints of increased pain or shortness of breath. No distress observed. VS remained WNL. Will continue to monitor.
[2022-01-13] MEDS: ipratropium-albuterol 3 mL Neb INHALATION ×4 (03:54→21:42)
[2022-01-13 05:18] LABS: Basophils % 0.2 %; Eosinophils # 0.3 10^3/uL (0.0-0.8); Eosinophils % 3.9 %; Hematocrit 45.9 % (42.0-52.0); Hemoglobin 15.1 g/dL (11.7-16.6); Lymphocytes # 1.6 10^3/uL (0.8-4.8); Lymphocytes % 19.9 %; Mean Corpuscular HGB Conc 32.9 g/dL (30.0-36.0); Mean Corpuscular Hemoglobin 29.3 pg (28.0-34.0); Mean Corpuscular Volume 89.1 fl (80-94); Mean Platelet Volume 9.9 fL (7.4-10.4); Monocytes # 0.7 10^3/uL (0.2-0.9); Monocytes % 8.8 %; Neutrophils # 5.38 10^3/uL (1.8-7.7); Nucleated Red Blood Cells % 0 %; Platelet Count 247 10^3/cmm (130-400); Red Blood Count 5.15 10^6/uL (4.1-5.3); Red Cell Distribution Width 12.9 % (12.1-15.1)
[2022-01-13 05:36] LABS: Anion Gap 15.2 (5-19); Blood Urea Nitrogen 13 mg/dL (6-20); Carbon Dioxide 25 mmol/L (22-29); Chloride 99 mmol/L (98-107); Chol HDL Ratio 4.19 mg/dL (1.0-5.00); Cholesterol 176 mg/dL (0-200); Glomerular Filtration Rate 137.9 mL/min (90-130); Glucose 110 mg/dL (65-115); HDL Cholesterol 42 mg/dL (60-100); LDL Cholesterol Calculated 117 mg/dL (50-129); LDL HDL Ratio 2.79 RATIO (0.00-3.22); Osmolality Calculated 281 mOsm/kg (285-295); Potassium 4.2 mmol/L (3.5-5.1); Sodium 135 mmol/L (136-145); Triglycerides 85 mg/dL (0-150)
--- NOTE | 2022-01-13 06:00 | XR_ITS ---
WS: [id number] XR chest 1V portable [id number] REASON FOR EXAM: ff-up pneumothorax FINDINGS: The right pneumothorax may be somewhat decreased in volume (lung apex now visible above posterior rig ht fourth rib) compared to previous examination of 01/12/2022. No other interval change or new finding. XR/XR chest 1V portable [id number] IMPRESSION: Possible decrease in volume of right pneumothorax as above
[2022-01-13] MEDS: aspirin 81 mg EC Tablet PO (08:37)
[2022-01-13] MEDS: oxyCODONE-APAP 5-325 mg Tablet 1 TAB PO (08:41)
[2022-01-13] MEDS: D5-NS 0.45% + KCL 20 mEq 20 MEQ/1,000 ML BAG 50 MEQ IV (08:42)
[2022-01-13] MEDS: budesonide 0.5 mg/2 mL Neb INHALATION ×2 (09:28→21:42)
--- NOTE | 2022-01-13 09:50 | P.PN_ITS ---
Subjective Subjective: -Patient seen at bedside -Saturating 97% on room air -Uneventful overnight and patient reported sleeping well -Reported on deep breathing his chest pain is less severe than yesterday -Chest x-ray showed possible decrease in volume of right pneumothorax -Other labs and imaging reviewed-echo showed a severely reduced EF with apical thickening and possible LV thrombus. Patient does not appear to be volume overloaded. Cardiology to follow-up Medications: Reviewed: Yes Vitals/I&O/Wt Last Vital Signs Temp 98.2 F 01/13/22 03:38 Pulse 89 01/13/22 09:33 Resp 17 01/13/22 09:28 BP 136/66 01/13/22 03:38 Pulse Ox 97 01/13/22 09:28 01/12/22 01/13/22 01/13/22 22:59 06:59 14:59 Intake Total 531.666 / 531.666 650.833 / 650.833 Output Total 300 / 300 700 / 1000 Balance 231.666 / 231.666 -700 / -468.334 650.833 / 650.833 Weight last 48 hrs Weight 124 lb Weight 125 lb Physical Exam Narrative: General: alert, NAD HEENT: conj clear, EOMI, PERRL, mmm, Neck: supple, no meningismus Heme: no cervical LAP Pulmonary: Improving breath sounds on right side Cardiovascular: rrr, nl s1s2, no mrg Abdomen: soft, nt, nd, no r/g, bs+ Extremities: pulses +, no edema, no c/c : no CVA tenderness Skin: intact, no rash MSK: no back or neck pain Neurologic: grossly intact Data : 01/13/22 04:15 01/13/22 04:15 Other Labs: Radiology Impressions Chest CT 01/12/22 11:35 IMPRESSION: 1. RIGHT pneumothorax without tension, 20-25%. 2. Moderate to severe emphysema. 3. Pleural nodule at the RIGHT apex measures 16 x 13 mm. Additional focal soft tissue nodule along the inferior RIGHT major fissure measuring 19 x 9 mm. Both of these areas will need further evaluation for possible neoplasm. There is additional pleural thickening at the RIGHT apex which appears more scarlike and fibrotic. PET/CT imaging may be necessary for further evaluation. 4. Prior CABG. 5. There are a few scattered nodules throughout the LEFT lung in a distribution suggesting tree-in-bud opacification may be related to mucous plugging or distal airways disease. These areas will also need long-term follow-up. Chest X-Ray 01/13/22 06:00 IMPRESSION: Possible decrease in volume of right pneumothorax as above Laboratory Results WBC 8.0 10^3/uL (4.0-10.0) 01/13/22 04:15 RBC 5.15 10^6/uL (4.1-5.3) 01/13/22 04:15 Hgb 15.1 g/dL (11.7-16.6) 01/13/22 04:15 Hct 45.9 % (42.0-52.0) 01/13/22 04:15 MCV 89.1 fl (80-94) 01/13/22 04:15 MCH 29.3 pg (28.0-34.0) 01/13/22 04:15 MCHC 32.9 g/dL (30.0-36.0) 01/13/22 04:15 RDW 12.9 % (12.1-15.1) 01/13/22 04:15 Plt Count 247 10^3/cmm (130-400) 01/13/22 04:15 MPV 9.9 fL (7.4-10.4) 01/13/22 04:15 Neut % (Auto) 67.0 % 01/13/22 04:15 Lymph % (Auto) 19.9 % 01/13/22 04:15 [place] % (Auto) 8.8 % 01/13/22 04:15 Eos % (Auto) 3.9 % 01/13/22 04:15 Baso % (Auto) 0.2 % 01/13/22 04:15 Neut # (Auto) 5.38 10^3/uL (1.8-7.7) 01/13/22 04:15 Lymph # (Auto) 1.6 10^3/uL (0.8-4.8) 01/13/22 04:15 [place] # (Auto) 0.7 10^3/uL (0.2-0.9) 01/13/22 04:15 Eos # (Auto) 0.3 10^3/uL (0.0-0.8) 01/13/22 04:15 Baso # (Auto) 0.0 10^3/uL (0.0-0.1) 01/13/22 04:15 Nucleated RBC % (auto) 0 % 01/13/22 04:15 Nucleated RBCs # 0.0 /100WBC 01/13/22 04:15 PT 13.50 SECONDS (12.1-14.9) 01/12/22 10:25 INR 1.00 (0.8-1.2) 01/12/22 10:25 APTT 31.5 SECONDS (23.9-36.7) 01/12/22 10:25 Sodium 135 mmol/L (136-145) L 01/13/22 04:15 Potassium 4.2 mmol/L (3.5-5.1) 01/13/22 04:15 Chloride 99 mmol/L (98-107) 01/13/22 04:15 Carbon Dioxide 25 mmol/L (22-29) 01/13/22 04:15 Anion Gap 15.2 (5-19) 01/13/22 04:15 BUN 13 mg/dL (6-20) 01/13/22 04:15 Creatinine 0.6 mg/dL (0.7-1.2) L 01/13/22 04:15 GFR Calculation 137.9 mL/min (90-130) H 01/13/22 04:15 Glucose 110 mg/dL (65-115) 01/13/22 04:15 Calculated Osmolality 281 mOsm/kg (285-295) L 01/13/22 04:15 Calcium 9.0 mg/dL (8.5-10.5) 01/13/22 04:15 Magnesium 2.0 mg/dL (1.7-2.3) 01/12/22 10:25 Total Bilirubin 0.3 mg/dL (0.15-1.2) 01/12/22 10:25 AST 16 U/L (0-40) 01/12/22 10:25 ALT 12 U/L (0-41) 01/12/22 10:25 Alkaline Phosphatase 102 IU/L (40-130) 01/12/22 10:25 Troponin T Baseline 6 ng/L (0-15) 01/12/22 10:25 Troponin T 120 Minute 7.54 ng/L (0-15) 01/12/22 12:45 Delta Troponin T 1.54 ABS# (0-10) 01/12/22 12:45 Troponin T Hi Sens 6Hr 8.84 ng/L (0-15) 01/12/22 16:30 Troponin T Hi Sens 6Hr Delta 2.84 ng/L (0-12) 01/12/22 16:30 Total Protein 7.4 g/dL (6.6-8.7) 01/12/22 10:25 Albumin 4.6 g/dL (3.5-5.2) 01/12/22 10:25 Globulin 2.8 g/dL (1.3-4.6) 01/12/22 10:25 Triglycerides 85 mg/dL (0-150) 01/13/22 04:15 Cholesterol 176 mg/dL (0-200) 01/13/22 04:15 LDL Cholesterol, Calc 117 mg/dL (50-129) 01/13/22 04:15 HDL Cholesterol 42 mg/dL (60-100) L 01/13/22 04:15 LDL/HDL Ratio 2.79 RATIO (0.00-3.22) 01/13/22 04:15 Cholesterol/HDL Ratio 4.19 mg/dL (1.0-5.00) 01/13/22 04:15 TSH 1.01 uIU/mL (0.27-4.20) 01/12/22 10:25 Urine Color Yellow (Yellow) 01/12/22 14:17 Urine Appearance Clear (CLEAR) 01/12/22 14:17 Urine pH 7 (5-7) 01/12/22 14:17 Ur Specific [place] 1.015 (1.005-1.030) 01/12/22 14:17 Urine Protein Neg (Negative) 01/12/22 14:17 Urine Glucose (UA) Norm (Normal) 01/12/22 14:17 Urine Ketones Negative (Negative) 01/12/22 14:17 Urine Blood Neg (Negative) 01/12/22 14:17 Urine Nitrate Negative (Negative) 01/12/22 14:17 Urine Bilirubin Neg (Negative) 01/12/22 14:17 Urine Urobilinogen Norm mg/dL (Negative) 01/12/22 14:17 Ur Leukocyte Esterase Negative (Negative) 01/12/22 14:17 A&P Assessment and plan (1) Spontaneous pneumothorax: Status: Acute (2) COPD (chronic obstructive pulmonary disease): Status: Acute (3) Coronary artery disease: Status: Acute (4) Right-sided chest pain: Status: Acute Plan #Spontaneous secondary pneumothorax patient with underlying bullous emphysema #History of bilateral pneumothoraxes 3 Days after CABG-requiring thoravent for evacuation of right neumothorax - chest x ray today on admission: 20% right apical ptx;- CT chest 3 hrs later - No significant change in 20-25% ptx - there appears to be pleural stranding;- pt is hemodynamically stable and comfortably breathing -Today morning Chest x-ray (24-hour since admission) possible decrease in volume of right pneumothorax -Patient saturating 97% on room air; Uneventful overnight and patient reported sleeping well -Reported on deep breathing his chest pain is less severe than yesterday -I will follow-up in pulmonary clinic in 1 week with follow-up chest x-ray #CT showed Pleural nodule at the RIGHT apex measures 16 x 13 mm. Additional focal soft tissue nodule along the inferior RIGHT major fissure measuring 19 x 9 mm. There is additional pleural thickening at the RIGHT apex which appears more scarlike and fibrotic. - PET/CT imaging as out pt and will plan for bronchoscopy and biopsies as out pt, # COPD in chronic smoker #Exertional shortness of breath and patient with significant smoking history- Possible COPD and CAD #Significant cardiac history with CAD s/p 3 Vessel CABG 2014 - [facility] 2-no reported exacerbations-group B -PFTs/6-minute walk test as out pt -DuoNebs every 8 hours scheduled while in the hospital -Given prescription for Spiriva 2.5 MCG 2 puffs daily as out pt -Counseled to quit smoking-patient agreed to try to quit -Recommended to stay up-to-date with flu shot and pneumonia at the office -We will refer to pulmonary rehab post PFTs -Follows up with cardiology for CABG #Echo showed reduced EF 15 to 20% with apical thickening-cannot rule out LV thrombus -Recommended limited echo with contrast to rule out LV thrombus and RV is mildly hypokinetic -Patient is clinically not volume overloaded -Cardiology to follow-up Medical condition, labs, investigations, medications, counseling regarding medication compliance, side effects, importance of follow-up appointments, smoking-its adverse effects and importance of cessation and plan of care-everyth ing explained in detail to the patient. Patient verbalized understanding and agreed with the plan of care. Recommendations conveyed to hospitalist, RN taking care of the patient Attestations Medical Necessity Statement*: Deferred to hospitalist Time Spent in Patient Care: Greater than 35 minutes (>than 50% of time spent in counselling and/or direct pt care on unit) . Critical Care Time: The high probability of a clinically significant, sudden or life threatening deterioration of the patient's [pulmonary system(s) required my full and direct attention, intervention and personal management. The critical care time is as shown. This time is in addition to time spent performin g any reported procedures but includes the following: [x] Data and vital sign review and interpretation [x] Patient assessment, examination and intervention [x] Documentation [x] Medication orders and management Critical Care Time (min): 45 Coding Level of Care Code Established Pt Acute Import Clerk for Chg Fwd Patient Type Established History Comprehensive Exam Comprehensive Medical Decision Making Moderate Complexity Diagnoses Spontaneous pneumothorax J93.83 COPD (chronic obstructive pulmonary disease) J44.9 Coronary artery disease I25.10 Right-sided chest pain R07.9 Time Spent (min) 45
--- NOTE | 2022-01-13 10:54 | P.PN_ITS ---
Subjective Subjective: tIz reports the pain in his right chest is much better. Not significantly short of breath. No nausea. Medications: Reviewed: Yes Vitals/I&O/Wt Last Vital Signs Temp 98 F 01/13/22 08:00 Pulse 89 01/13/22 09:33 Resp 17 01/13/22 09:28 BP 137/64 01/13/22 08:00 Pulse Ox 97 01/13/22 09:28 01/12/22 01/13/22 01/13/22 22:59 06:59 14:59 Intake Total 531.666 / 838.360 4220.833 / 1010.833 Output Total 300 / 300 700 / 1000 480 / 480 Balance 231.666 / 231.666 -700 / -468.334 530.833 / 530.833 Weight last 48 hrs Weight 56.245 kg Weight 56.699 kg Physical Exam Narrative: General exam demonstrates a white male, in no distress Neck is supple no lymphadenopathy or thyromegaly Cardiovascular regular rate and rhythm, no murmur Lungs clear no wheezing or crackles. Diminished breath sounds are noted bilaterally Abdomen is soft nontender positive bowel sounds. No obvious organomegaly Extremities no cyanosis clubbing or edema, cap refill brisk Skin no rash Data : 01/13/22 04:15 01/13/22 04:15 Other data: Echocardiogram demonstrates EF of 15 to 20% A&P Assessment and plan (1) Pneumothorax: Patient with spontaneous pneumothorax, right chest. Pulmonary consult appreciated Chest x-ray demonstrates resolving pneumothorax CT chest demonstrates nodule, which can be followed up as an outpatient with pulmonary, with PFTs at that time. Status: Acute (2) Palpitations: Patient with history of palpitations. Telemetry here shows sinus rhythm, occasional PACs and PVCs. Echocardiogram demonstrates significantly low EF at 15 to 20%, previously 45% in 2015. This may warrant LifeVest, initiation of other treatment, cardiology evaluation. Although not acutely and cardiac decompensation, I believe cardiology consultation is important to initiate treatment prior to discharge. Secondary to low EF initiate low-dose carvedilol. Consider MERLIN inhibitor. Status: Acute (3) COPD (chronic obstructive pulmonary disease): DuoNeb as needed Budesonide twice daily. Status: Acute (4) Coronary artery disease: Past history of bypass surgery. Initiate aspirin daily. Initiate Lipitor Initiate low-dose beta-grace Secondary to low EF may need LifeVest In future if tolerating carvedilol consider MERLIN inhibitor or ARB Status: Acute Plan Full code SCDs for DVT prophylaxis. Attestations Medical Necessity Statement*: Hold discharge at this time, until cardiology can evaluate significant reduction in ejection fraction. Coding Level of Care Code Acute Social Media Community Manager for Chg Fwd Diagnoses Pneumothorax J93.9 Palpitations R00.2 COPD (chronic obstructive pulmonary disease) J44.9 Coronary artery disease I25.10
--- NOTE | 2022-01-13 11:48 | P.CONIM_ITS ---
Providers/Reason For Consult Consulting Physician/Specialty*: Dr. Joyner, Cardiology Reason for Consult*: CAD s/p CABG, CHF with decrease in LV function Attending Physician: Aaron Young MD History of Present Illness History of Present Illness Levi Madrid is a 61 year old male with a history of coronary disease and multiple PCI's in the past and underwent three-vessel coronary bypass grafting on 05/16/[address] Esquivel. According to him he had a total of 11 stents. Some of them were done in [place]. He also has h/o frequent PVCs, ischemic EKG changes and ventricular tachycardia which was spontaneously converted to sinus rhythm during exercise MPI in 05/2015. He has a very strong family history for premature atherosclerotic heart disease, COPD and is a chronic active smoker at least 30 pack years and is not very compliant. He has not seen a intellectual property legal assistant since 2014 not seen his primary care physician for last 2 years per patient. He presented to the hospital with sudden onset right lower chest discomfort that started suddenly early in the morning. Patient denied any shortness of breath, fever, chills, cough, nausea, vomiting, diarrhea. No prior episodes of chest discomfort. On arrival, chest x-ray showed 20% right-sided pneumothorax.? CT chest RIGHT pneumothorax without tension, 20-25%.There is moderate to severe emphysema.? There is a pleural nodule at the right apex ?measures 16 x 13 mm. Additional focal soft tissue nodule along the inferior RIGHT major fissure measuring 19 x 9 mm. Both of these areas will need further evaluation for possible neoplasm. There is additional pleural thickening at the RIGHT apex which appears more scarlike and fibrotic. Chest x-ray this morning showed possible decrease in size of right pneumothorax. Patient is saturating well on room air. In the meantime he also underwent echocardiogram which showed severely decreased left ventricular systolic function and possible left ventricular apical thrombus. Patient remains chest pain-free and laying comfortably in bed at time of examination. EKG showing sinus rhythm with right axis deviation. Right bundle branch block. At home patient has been taking aspirin 3 times per week. I have been asked to evaluate the patient given his extensive CAD history and recently noted decrease in LV function on echocardiogram. Review of Systems General: Reports: 10 or more systems reviewed and unremarkable except in HPI and below Const: Denies: fever(s) or chills Eyes: Denies: change in vision ENMT: Denies: throat pain Card: Reports: chest pain and palpitations Resp: Reports: dyspnea and non-productive cough GI: Denies: abdominal pain, hematochezia or melena : Reports: urinary dribbling; Denies: flank pain Musc: Denies: neck pain Skin/Breast: Denies: rash Neuro: Denies: headache(s) Psych: Denies: anxiety or depression Endo: Denies: polyuria Chung/Lymph: Denies: easy bruising or easy bleeding All/Imm: Denies: urticaria Medications/Allergies Home Medications Medication Instructions Recorded Confirmed Last Taken Type aspirin 81 mg tablet,delayed 81 - 324 mg PO .THREE TIMES A WEEK 01/12/22 01/12/22 01/07/22 History release Allergies Allergy/AdvReac Type Severity Reaction Status Date / Time No Known Allergies Allergy Verified 01/12/22 10:30 Current Medications Generic Name Dose Route Start Last Admin Trade Name Freq PRN Reason Stop Dose Admin Albuterol/Ipratropium 3 ml 01/13/22 09:00 01/13/22 09:28 Ipratropium-Albuterol 3 Ml Neb INHALATION 3 ml Q6H.RESPIRATORY DANIEL Administration Aspirin 81 mg 01/13/22 09:00 01/13/22 08:37 Aspirin 81 Mg Ec Tablet PO 81 mg DAILY DANIEL Administration Budesonide 0.5 mg 01/12/22 20:00 01/13/22 09:28 Budesonide 0.5 Mg/2 Ml Neb INHALATION 0.5 mg BID DANIEL Administration Oxycodone/Acetaminophen 1 tab 01/12/22 14:25 01/13/22 08:41 Oxycodone-Apap 5-325 Mg Tablet PO 1 tab Q4H PRN Administration SEVERE PAIN PFSH Acute PFSH: Medical History COPD (chronic obstructive pulmonary disease) Coronary artery disease Surgical History History of coronary artery bypass graft Social History Smoking and tobacco status: current every day smoker Alcohol intake: never Vitals/I&O/Wt Last Vital Signs Temp 98 F 01/13/22 08:00 Pulse 89 01/13/22 09:33 Resp 17 01/13/22 09:28 BP 137/64 01/13/22 08:00 Pulse Ox 97 01/13/22 09:28 01/12/22 01/13/22 01/13/22 22:59 06:59 14:59 Intake Total 531.666 / 643.855 3459.833 / 1010.833 Output Total 300 / 300 700 / 1000 480 / 480 Balance 231.666 / 231.666 -700 / -468.334 530.833 / 530.833 Weight last 48 hrs Weight 124 lb Weight 125 lb Physical Exam Narrative: GENERAL: Frail-appearing patient laying in bed no acute distress HEENT: Extraocular movement intact. No pallor or icterus. NECK: No JVD, No carotid bruit. CARDIOVASCULAR SYSTEM: S1-S2 regular. No murmur rubs or gallops. RESPIRATORY SYSTEM: Decreased breath sounds on R. prolonged expiration. No wheezes rhonchi heard. No use of accessory muscles. ABDOMEN: Soft, nontender and nondistended. Normal bowel sounds present. No hepatosplenomegaly appreciated. EXTREMITIES: No cyanosis or edema. No signs of chronic venous insufficiency. 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 No focal neurological deficits. Cranial nerves intact. SKIN: Normal turgor and temperature. No breakdown, rash noted. PSYCH: Normal insight and judgment. Data : 01/13/22 04:15 01/13/22 04:15 Other data: TTE (01/13/22) CONCLUSIONS ?LV systolic function is severely reduced with EF of 15-20%. ?Apical thickening is seen. Can not rule out LV thrombus. ?Recommend limited echo with contrast to rule out LV thrombus ?RV is mildly hypokinetic ?No significant valvular disease seen ?Compared to prior echocardiogram from 12/22/2014, LV systolic ?function is significantly decreased now and is 15-20% ( from 40- ?45% before) Cardiac cathetarization (05/2015) Conclusions Procedure Summary Severe 2 vessel coronary artery disease, including the proximal LAD lesion, involving the ostium .. Status post multiple stents in the LAD and the right coronary artery. Mild to moderate disease in the proximal circumflex artery. Normal LV ejection fraction. Slightly elevated LV EDP. Recommendations I reviewed and discussed the cardiac cath data per the doctor Villatoro. In view of the patient's extensive disease and history of multiple PCI's in the past, based on the above angiographic findings, it was thought to be appropriate to consider a surgical revascularization. Will consult Dr. Esquivel. Also will discuss this with the patient and family. A final decision will be made afterwards. Patient was transferred back to the ICU in stable condition Cardiac Arteries and Lesion Findings LMCA: Medium caliber vessel There is a 30% stenosis noted in the ostial portion of the vessel. LAD: Medium caliber vessel It appears to wrap around the LV apex Moderate to severe diffuse disease was noted in the proximal segment of the artery, involving the ostium. The lesions were ranging from 60-75%. The distal lesion was found to be a napkin ring type at the chante stent region. The mid LAD gives off a large diagonal and a septal highway patrol officer. The septal highway patrol officer was found to have high-grade ostial narrowing. The diagonal artery was found to have around 60% ostial lesion. Following this, the artery appears to be bifurcating. Right after the takeoff of the diagonal branch, there is a 70% eccentric lesion in the LAD. The mid LAD has mild diffuse disease with a patent stented segments. The distal LAD was found to have mild diffuse intimal irregularities. LCx: Medium caliber vessel The ostium of the circumflex artery was found to have moderate, 40-50% stenosis. Long proximal stented segment was found to be widely patent. The mid circumflex was found to have mild diffuse intimal irregularities. The artery appears to be bifurcating distally. Mild diffuse disease is noted at the bifurcation. No other significant stenotic lesions RCA: Medium caliber dominant vessel The long stented segment of the proximal and the mid RCA was found to be patent with minimal diffuse in-stent narrowing. The distal RCA also was found to have a stented segment which is widely patent. Between the mid and the distal stented segment, there is tapering narrowing of 70-80% in the [place] vessel. The PLV and the PDA branches of the distal right coronary artery was found to have no significant stenotic lesions A&P Assessment and plan (1) Chest pain: Pleuritic chest pain secondary to spontaneous pneumothorax Status: Acute (2) Cardiomyopathy: Ischemic cardiomyopathy with recently diagnosed and drop in LV function. NYHA class 3 symptoms -Agree with starting low-dose carvedilol and plan to add MERLIN inhibitor/ARB based on blood pressure. -Patient appears euvolemic on exam. -Patient is a candidate for LifeVest however he does not have any insurance. Our social organization professor has been involved. -Given his history of noncompliance, I do not think it is prudent to take him for cardiac catheterization at this time. I will start with medical management with plan to follow-up as an outpatient and decision for viability testing f/b cardiac catheterization at that time. -This was discussed with patient and he is agreeable with the plan. -Follow-up in 1 to 2 weeks in [facility]. Status: Acute (3) Coronary artery disease: Started on aspirin and statin -History of CABG x3 [place] [address] Esquivel Status: Acute (4) Spontaneous pneumothorax: Status: Acute (5) COPD (chronic obstructive pulmonary disease): Status: Acute Plan Pulmonary nodules Dyslipidemia Chronic active smoker H/o Non cmpliance Thank you for allowing me to participate in patient's care. Please feel free to call with questions or concerns. Consult Attestations Time Spent in Patient Care: 16 - 35 minutes (>than 50% of time spent in counselling and/or direct pt care on unit) . Coding Level of Care Code Acute Diagrammer for Anthonyg Fwd Diagnoses Cardiomyopathy I42.9 Coronary artery disease I25.10 Spontaneous pneumothorax J93.83 Chest pain R07.9 COPD (chronic obstructive pulmonary disease) J44.9
--- NOTE | 2022-01-13 11:52 | USCV_ITS ---
Levi Madrid Age: 61 Gender: M : 1960 Exam Date: 01/13/2022 12:49 Ordering Phys: Tere Joyner MD ([email or web address]) Technologist: Ronan Herbert Exam Location: [facility] – [place] Indication: EVALUATE FOR POSSIBLE LEFT VENTRICLE THROMBUS BP: 116 / 70 HR: 58 Rhythm: PVCs Technical Quality: Adequate MEASUREMENTS (Male / Female) Normal Values 2D ECHO LV Ejection Fraction MOD 2C 15.8 % LV Ejection Fraction 2C AL 16.2 % FINDINGS Left Ventricle Right Ventricle Right Atrium Left Atrium Mitral Valve Aortic Valve Tricuspid Valve Pulmonic Valve Pericardium Aorta CONCLUSIONS 1. This is a limited study with echo contrast. 2. Mild dilated left ventricle cavity. Severely decreased left ventricle systolic function. Left ventricle systolic function estimated at 15-20 %. Severe global hypokinesis with some regional variation. Abnormal septal motion. 3. No evidence of left ventricular apical thrombus. Tere Joyner MD (Electronically Signed) Final Date: 13 Jan 2022 13:55 S
[2022-01-13] MEDS: perflutren protein-a microsphr 0.22 mg/mL SDV 3 mL IV (12:40)
[2022-01-13] MEDS: carvedilol 3.125 mg Tablet PO ×2 (13:26→18:12)
[2022-01-13] MEDS: zolpidem 5 mg Tablet PO (20:34)
[2022-01-13] MEDS: atorvastatin 40 mg Tablet PO (20:34)
[2022-01-14] VITALS (8 sets, daily range): BP systolic 120–144; BP diastolic 71–76; PULSE 81–91; RESP 16–23; TEMP 36.7; O2SAT 92–96
[2022-01-14] MEDS: ipratropium-albuterol 3 mL Neb INHALATION ×2 (04:29→09:44)
--- NOTE | 2022-01-14 07:00 | XR_ITS ---
WS: [id number] PORTABLE CHEST HISTORY: follow up pneumothorax. COMPARISON: 01/13/2022, 01/12/2022 Prior CABG. Chronic emphysema. Previously described small RIGHT pneumothorax has not improved or progressed since 01/12/2022. Approximately 25% pneumothorax without midline shift. No pleural effusion or pneumothorax. Cardiac size: Mildly enlarged cardiac silhouette. Coronary artery stents are present. Mediastinum/Aorta: Mild atherosclerosis aorta. No osseous abnormality seen. XR/XR chest 1V portable [id number] IMPRESSION: 1. No change in the 25% RIGHT pneumothorax since 01/12/2022. 2. Chronic emphysema. 3. CABG.
[2022-01-14] MEDS: aspirin 81 mg EC Tablet PO (08:18)
[2022-01-14] MEDS: carvedilol 3.125 mg Tablet PO (08:18)
[2022-01-14] MEDS: losartan 50 mg Tablet 25 MG PO (08:19)
--- NOTE | 2022-01-14 09:22 | P.DS_ITS ---
Discharge Providers Date of Admission: 01/12/22 14:25 Date of Discharge: January 14, 2022 Attending Provider at Admission: Aaron Young MD Attending Provider at Discharge: Yamil Stockton MD Consults: Pulmonary, Cardiology Primary Care Provider: Gage Burr Diagnoses at Discharge Discharge Diagnosis (1) Chest pain: Status: Acute (2) Cardiomyopathy: Status: Acute (3) Coronary artery disease: Status: Acute (4) Spontaneous pneumothorax: Status: Acute (5) COPD (chronic obstructive pulmonary disease): Status: Acute Reason for Visit Reason for Visit: Doctor sent over for lung complication Hospital Course Hospital Course Levi Madrid is a 61-year-old male with a past medical history significant for tobacco use disorder, coronary artery disease s/p 3v CABG (2014), and COPD who presented with right-sided chest pain, found to have right-sided spontaneous pneumothorax in the setting of bullous emphysema. Pneumothorax was monitored with serial imaging, found to be stable and improving. Pulmonary medicine was consulted and followed. CT also showed pleural apex nodule measuring 16 by 13 mm as well as an additional focal soft tissue nodule along the inferior right major fissure measuring 19 x 9mm. Pulmonary recommended outpatient PET/CT, PFTs, 6 minute walk test, and bronchoscopy with biopsy. He was found to have chronic heart failure with reduced ejection fraction likely secondary to ischemic cardiomyopathy. Cardiology was consulted and followed. There was initial concern for LV thrombus with repeat limited echo negative for evidence of LV thrombus. He was started on goal directed medical therapy with low dose aspirin, Coreg, high intensity statin, and losartan. Cardiac cath was deferred due to history of non-compliance. Live vest was considered however patient is uninsured and unable to pay for himself. Case management assisted patient with application for coverage and he will follow up in cardiology clinic for reconsideration of life vest thearpy. Patient was counseled for greater than 3 minutes on the day of discharge on tobacco cessation. He reported before admission, he was smoking half a pack of cigarettes per day. He endorses wanting to quit smoking. Reports he has quit before successfully using the cold turkey method. Discussed harmful effects tobacco has on health. Patient was discharged to home in stable condition. Physical Exam Narrative: GENERAL: NAD. Frail appearing. HEENT: Extraocular movement intact. NECK: No JVD. CARDIOVASCULAR SYSTEM: RRR. No murmur rubs or gallops. RESPIRATORY SYSTEM: Non-labored. Breath sounds diminished on right. No wheezing. ABDOMEN: Soft, Non tender. No distention. EXTREMITIES: No cyanosis or edema.? 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 No myoclonus. SKIN: No jaundice. Discharge Data Studies Completed and Pending Completed Studies During Hospitalization Category Date Time Status CT chest wo con [id number] Stat Cat Scan 01/12/22 11:35 Completed XR chest 1V portable [id number] Routine Exams 01/12/22 20:00 Completed XR chest 1V portable [id number] Routine Exams 01/13/22 06:00 Completed XR chest 1V portable [id number] Routine Exams 01/14/22 07:00 Completed CV. echo complete* [id number] Routine Ultrasound 01/12/22 14:25 Completed CV. echo lmt w/w contras [id number] Routine Ultrasound 01/13/22 11:52 Completed Radiology Impressions Chest CT 01/12/22 11:35 IMPRESSION: 1. RIGHT pneumothorax without tension, 20-25%. 2. Moderate to severe emphysema. 3. Pleural nodule at the RIGHT apex measures 16 x 13 mm. Additional focal soft tissue nodule along the inferior RIGHT major fissure measuring 19 x 9 mm. Both of these areas will need further evaluation for possible neoplasm. There is additional pleural thickening at the RIGHT apex which appears more scarlike and fibrotic. PET/CT imaging may be necessary for further evaluation. 4. Prior CABG. 5. There are a few scattered nodules throughout the LEFT lung in a distribution suggesting tree-in-bud opacification may be related to mucous plugging or distal airways disease. These areas will also need long-term follow-up. Chest X-Ray 01/14/22 07:00 IMPRESSION: 1. No change in the 25% RIGHT pneumothorax since 01/12/2022. 2. Chronic emphysema. 3. CABG. Laboratory Results WBC 8.0 10^3/uL (4.0-10.0) 01/13/22 04:15 RBC 5.15 10^6/uL (4.1-5.3) 01/13/22 04:15 Hgb 15.1 g/dL (11.7-16.6) 01/13/22 04:15 Hct 45.9 % (42.0-52.0) 01/13/22 04:15 MCV 89.1 fl (80-94) 01/13/22 04:15 MCH 29.3 pg (28.0-34.0) 01/13/22 04:15 MCHC 32.9 g/dL (30.0-36.0) 01/13/22 04:15 RDW 12.9 % (12.1-15.1) 01/13/22 04:15 Plt Count 247 10^3/cmm (130-400) 01/13/22 04:15 MPV 9.9 fL (7.4-10.4) 01/13/22 04:15 Neut % (Auto) 67.0 % 01/13/22 04:15 Lymph % (Auto) 19.9 % 01/13/22 04:15 [place] % (Auto) 8.8 % 01/13/22 04:15 Eos % (Auto) 3.9 % 01/13/22 04:15 Baso % (Auto) 0.2 % 01/13/22 04:15 Neut # (Auto) 5.38 10^3/uL (1.8-7.7) 01/13/22 04:15 Lymph # (Auto) 1.6 10^3/uL (0.8-4.8) 01/13/22 04:15 [place] # (Auto) 0.7 10^3/uL (0.2-0.9) 01/13/22 04:15 Eos # (Auto) 0.3 10^3/uL (0.0-0.8) 01/13/22 04:15 Baso # (Auto) 0.0 10^3/uL (0.0-0.1) 01/13/22 04:15 Nucleated RBC % (auto) 0 % 01/13/22 04:15 Nucleated RBCs # 0.0 /100WBC 01/13/22 04:15 PT 13.50 SECONDS (12.1-14.9) 01/12/22 10:25 INR 1.00 (0.8-1.2) 01/12/22 10:25 APTT 31.5 SECONDS (23.9-36.7) 01/12/22 10:25 Sodium 135 mmol/L (136-145) L 01/13/22 04:15 Potassium 4.2 mmol/L (3.5-5.1) 01/13/22 04:15 Chloride 99 mmol/L (98-107) 01/13/22 04:15 Carbon Dioxide 25 mmol/L (22-29) 01/13/22 04:15 Anion Gap 15.2 (5-19) 01/13/22 04:15 BUN 13 mg/dL (6-20) 01/13/22 04:15 Creatinine 0.6 mg/dL (0.7-1.2) L 01/13/22 04:15 GFR Calculation 137.9 mL/min (90-130) H 01/13/22 04:15 Glucose 110 mg/dL (65-115) 01/13/22 04:15 Calculated Osmolality 281 mOsm/kg (285-295) L 01/13/22 04:15 Calcium 9.0 mg/dL (8.5-10.5) 01/13/22 04:15 Magnesium 2.0 mg/dL (1.7-2.3) 01/12/22 10:25 Total Bilirubin 0.3 mg/dL (0.15-1.2) 01/12/22 10:25 AST 16 U/L (0-40) 01/12/22 10:25 ALT 12 U/L (0-41) 01/12/22 10:25 Alkaline Phosphatase 102 IU/L (40-130) 01/12/22 10:25 Troponin T Baseline 6 ng/L (0-15) 01/12/22 10:25 Troponin T 120 Minute 7.54 ng/L (0-15) 01/12/22 12:45 Delta Troponin T 1.54 ABS# (0-10) 01/12/22 12:45 Troponin T Hi Sens 6Hr 8.84 ng/L (0-15) 01/12/22 16:30 Troponin T Hi Sens 6Hr Delta 2.84 ng/L (0-12) 01/12/22 16:30 Total Protein 7.4 g/dL (6.6-8.7) 01/12/22 10:25 Albumin 4.6 g/dL (3.5-5.2) 01/12/22 10:25 Globulin 2.8 g/dL (1.3-4.6) 01/12/22 10:25 Triglycerides 85 mg/dL (0-150) 01/13/22 04:15 Cholesterol 176 mg/dL (0-200) 01/13/22 04:15 LDL Cholesterol, Calc 117 mg/dL (50-129) 01/13/22 04:15 HDL Cholesterol 42 mg/dL (60-100) L 01/13/22 04:15 LDL/HDL Ratio 2.79 RATIO (0.00-3.22) 01/13/22 04:15 Cholesterol/HDL Ratio 4.19 mg/dL (1.0-5.00) 01/13/22 04:15 TSH 1.01 uIU/mL (0.27-4.20) 01/12/22 10:25 Urine Color Yellow (Yellow) 01/12/22 14:17 Urine Appearance Clear (CLEAR) 01/12/22 14:17 Urine pH 7 (5-7) 01/12/22 14:17 Ur Specific [place] 1.015 (1.005-1.030) 01/12/22 14:17 Urine Protein Neg (Negative) 01/12/22 14:17 Urine Glucose (UA) Norm (Normal) 01/12/22 14:17 Urine Ketones Negative (Negative) 01/12/22 14:17 Urine Blood Neg (Negative) 01/12/22 14:17 Urine Nitrate Negative (Negative) 01/12/22 14:17 Urine Bilirubin Neg (Negative) 01/12/22 14:17 Urine Urobilinogen Norm mg/dL (Negative) 01/12/22 14:17 Ur Leukocyte Esterase Negative (Negative) 01/12/22 14:17 Vitals Last Vital Signs Temp 98.1 F 01/14/22 07:06 Pulse 82 01/14/22 07:06 Resp 23 H 01/14/22 07:06 BP 144/74 01/14/22 08:19 Pulse Ox 95 01/14/22 07:06 Discharge Plan Discharge Patient Disposition: Home Condition: Stable Prescriptions: New atorvastatin 40 mg Tablet 40 mg PO BEDTIME Qty: 30 0RF aspirin 81 mg Tablet,Delayed Release (Dr/Ec) 81 mg PO DAILY Qty: 30 0RF carvedilol 3.125 mg Tablet 3.125 mg PO BID Qty: 60 0RF Spiriva Respimat 2.5 mcg/actuation mist 2 inh inhalation Q24H Qty: 4 0RF losartan 50 mg Tablet 25 mg PO DAILY Qty: 15 1RF Discontinued aspirin [Aspir-81] 81 mg Tablet,Delayed Release (Dr/Ec) 81 - 324 mg PO .THREE TIMES A WEEK 0RF Discharge Orders: Discharge Order (Routine); Ordered 01/14/22 Ordered By: Yamil Stockton Referrals: DatarGuero MD [Physician] - 1 week (Chest x-ray PA and lateral on follow- up) Mayur Burr MD [Physician] - 01/16/22 1:30 pm Tere Joyner MD [Physician] - 2 weeks (follow up of cardiomyopathy) Discharge Diet: Cardiac Discharge Activity: Increase activity as tolerated Patient Instructions: Opioid Safety Activity Restrictions/Additional Instructions: Take all medicine as prescribed. Cardiac low-salt diet Keep follow-up with pulmonary, cardiology, primary care provider Return for any chest discomfort, increasing shortness of breath Discharge Attestations Time Spent in Discharge Care*: greater than 30 min Time Spent in Smoking Cessation: >3 minutes Status at Discharge: Overall status at discharge: patient is progressing back to baseline Quality Metrics Clinical Quality Measures [ No reported AMI, CVA or VTE this stay] Coding Level of Care Code Acute Chg [facility] note Diagnoses Chest pain R07.9 Cardiomyopathy I42.9 Coronary artery disease I25.10 Spontaneous pneumothorax J93.83 COPD (chronic obstructive pulmonary disease) J44.9
[2022-01-14] MEDS: budesonide 0.5 mg/2 mL Neb INHALATION (09:44)
--- NOTE | 2022-01-14 12:57 | P.PN_ITS ---
Subjective Subjective: No chest pain, SOB has resolved. Saturating 96% on RA Medications: Reviewed: Yes Vitals/I&O/Wt Last Vital Signs Temp 98.1 F 01/14/22 07:06 Pulse 81 01/14/22 11:07 Resp 18 01/14/22 11:07 BP 120/71 01/14/22 11:07 Pulse Ox 96 01/14/22 11:07 01/13/22 01/14/22 01/14/22 22:59 06:59 14:59 Intake Total 696.667 / 1947.500 360 / 360 Output Total 580 / 1280 400 / 1680 Balance 116.667 / 667.500 -400 / 267.500 360 / 360 Weight last 48 hrs Weight 124 lb Physical Exam Narrative: GENERAL: Frail-appearing patient laying in bed no acute distress HEENT: Extraocular movement intact. No pallor or icterus. NECK: No JVD, No carotid bruit. CARDIOVASCULAR SYSTEM: S1-S2 regular. No murmur rubs or gallops. RESPIRATORY SYSTEM: Decreased breath sounds on R (improved). prolonged expiration. No wheezes rhonchi heard. No use of accessory muscles. ABDOMEN: Soft, nontender and nondistended. Normal bowel sounds present. No hepatosplenomegaly appreciated. EXTREMITIES: No cyanosis or edema. No signs of chronic venous insufficiency. WAX CUTTER: Patient is alert oriented ?3. No focal neurological deficits. Cranial nerves intact. SKIN: Normal turgor and temperature. No breakdown, rash noted. PSYCH: Normal insight and judgment. Data : 01/13/22 04:15 01/13/22 04:15 A&P Assessment and plan (1) Chest pain: Pleuritic chest pain secondary to spontaneous pneumothorax Status: Acute (2) Cardiomyopathy: Ischemic cardiomyopathy with recently diagnosed and drop in LV function. NYHA class 3 symptoms -Agree with starting low-dose carvedilol and losartan added this morning. -Patient appears euvolemic on exam. -Patient is a candidate for LifeVest however he does not have any insurance. Our geriatric social work professor has been involved for the same. -Given his history of noncompliance, I do not think it is prudent to take him for cardiac catheterization at this time. I will start with medical management with plan to follow-up as an outpatient and decision for viability testing f/b cardiac catheterization at that time. -This was discussed with patient and he is agreeable with the plan. -Follow-up in 1 to 2 weeks in [facility]. Status: Acute (3) Coronary artery disease: Started on aspirin and statin -History of CABG x[place] [address] Esquivel Status: Acute (4) Spontaneous pneumothorax: Status: Acute (5) COPD (chronic obstructive pulmonary disease): Status: Acute Plan Pulmonary nodules Dyslipidemia Chronic active smoker H/o Non cmpliance Thank you for allowing me to participate in patient's care. Please feel free to call with questions or concerns. Attestations Medical Necessity Statement*: stable to be discharged home. Coding Level of Care Code Acute Malt Specifications Control Assistant for Juan M Doand Diagnoses Chest pain R07.9 Cardiomyopathy I42.9 Coronary artery disease I25.10 Spontaneous pneumothorax J93.83 COPD (chronic obstructive pulmonary disease) J44.9 Time Spent (min) 20
--- NOTE | 2022-01-14 14:04 | PC.NURSE ---
Discharge Note Patient discharged to Home via private vehicle accompanied by friends. Discharge instructions reviewed with patient and/or agricultural sales representative. Mobile pharmacy medications and/or prescriptions provided. Belongings/home medications returned.
== END 2022-01-14 14:05 | disposition home or self-care (01) | DRG 200 ==
LOC: ER 11:18 → CSU 14:15
PROVIDERS: Admitting Provider Internal Medicine; Emergency Provider Family Medicine; Family Provider Internal Medicine; Visit Provider Internal Medicine
DX: J93.9 Pneumothorax, unspecified (principal); I42.9 Cardiomyopathy, unspecified; J43.9 Emphysema, unspecified; I25.10 Atherosclerotic heart disease of native coronary artery without angina pectoris; Z95.1 Presence of aortocoronary bypass graft; F17.210 Nicotine dependence, cigarettes, uncomplicated
CPT/HCPCS: 36415; 71045; 71250; 80048; 80053; 80061; 81003; 83735; 84443; 84484; 85025; 85610; 85730; 93005; 93306; 94640; 99285; C8924; J7626; Q9956

== ENCOUNTER → 2022-01-19 10:55 | Outpatient (BNVA) | payer MEDICAID, SELFPAY | PROVIDERS: Family Provider Internal Medicine; Visit Provider Internal Medicine Pulmonary Disease | DX: J44.9 Chronic obstructive pulmonary disease, unspecified (principal); R91.8 Other nonspecific abnormal finding of lung field; Z09 Encounter for follow-up examination after completed treatment for conditions other than malignant neoplasm; J93.83 Other pneumothorax; I25.10 Atherosclerotic heart disease of native coronary artery without angina pectoris; I50.20 Unspecified systolic (congestive) heart failure | CPT/HCPCS: 71046 ==

== ENCOUNTER → 2022-03-02 12:46 | Outpatient (BNVA) | payer MEDICAID, SELFPAY | PROVIDERS: Family Provider Internal Medicine; PCP Family Medicine Adult Medicine; Visit Provider Internal Medicine Pulmonary Disease | DX: J93.83 Other pneumothorax (principal) | CPT/HCPCS: 71046 ==

== ENCOUNTER 2022-03-05 09:05 | Outpatient (CLI) | payer MEDICAID, SELFPAY ==
--- NOTE | 2022-03-05 10:38 | PFTS_ITS ---
Date of Study:03/05/22 Date of Dictation: 03/07/22 MECHANICS: Prebronchodilator forced vital capacity (FVC) is normal reduced. Prebronchodilator forced expiratory volume in one second (FEV1) is moderately reduced. FEV1/FVC is reduced. There is no postbronchodilator study. FLOW VOLUME LOOP: Sloping of expiratory limb suggestive of airflow obstruction . LUNG VOLUMES: Total lung capacity (TLC) is normal. Residual volume (RV) is increased suggesting air trapping. DIFFUSING CAPACITY FOR CARBON MONOXIDE: Moderately reduced . INTERPRETATION: The prebronchodilator spirometry showed moderate airflow obstruction. Post bronchodilator study was not performed. Lung volumes suggestive of moderate air trapping. There is moderate gas transfer defect. Constellation of findings suggestive of moderate emphysema. Clinical correlation recommended MTDD
== END 2022-03-05 09:06 | disposition home or self-care (01) ==
LOC: RT 09:10
PROVIDERS: PCP Family Medicine Adult Medicine; Visit Provider Internal Medicine Pulmonary Disease
DX: J44.9 Chronic obstructive pulmonary disease, unspecified (principal)
CPT/HCPCS: 94010; 94618; 94726; 94729

== ENCOUNTER → 2022-05-04 08:18 | Outpatient (BNVA) | payer MEDICAID, SELFPAY | PROVIDERS: PCP Family Medicine Adult Medicine; Visit Provider Internal Medicine Pulmonary Disease | DX: J43.9 Emphysema, unspecified (principal); J93.83 Other pneumothorax; I25.10 Atherosclerotic heart disease of native coronary artery without angina pectoris; I50.20 Unspecified systolic (congestive) heart failure; R91.8 Other nonspecific abnormal finding of lung field; Z87.891 Personal history of nicotine dependence | CPT/HCPCS: 99214 ==

== ENCOUNTER → 2022-05-18 12:01 | Outpatient (BNVA) | payer MEDICAID, SELFPAY | PROVIDERS: PCP Family Medicine Adult Medicine; Visit Provider Internal Medicine Cardiovascular Disease | DX: I42.9 Cardiomyopathy, unspecified (principal); I25.10 Atherosclerotic heart disease of native coronary artery without angina pectoris; R07.9 Chest pain, unspecified; R06.02 Shortness of breath | CPT/HCPCS: 80053; 80061; 83735; 83880 ==

== ENCOUNTER 2022-06-11 07:42 | Outpatient (CLI) | payer MEDICAID, SELFPAY ==
[2022-06-11 08:20] VITALS: BMI 17.1
--- NOTE | 2022-06-11 08:25 | ECG_ITS ---
[facility] Test Date: 2022-06-11 Pat Name: Levi Madrid Department: Room: Gender: Male Filament Maker: Danielle Bhagat : 1960 Requested By: Tere Joyner Order Number: [id number] Rj MD: Tere Joyner M.D. Interpretive Statements NAME OF STUDY: LEXISCAN SESTAMIBI STRESS TEST INDICATION: Chest Pain; Shortness of Breath PROCEDURE: At the baseline, the blood pressure was 131/73 mm Hg with a heart rate of 58 bpm. The electrocardiogram showed sinus bradycardia, right axis deviation. Right bundle branch block. The Lexiscan was infused over a period of 20 seconds. A total of 0.4 milligrams of Lexiscan was infused. The stress phase was continued for a total of 5 minutes. Heart rate at the end of the stress phase was 75 bpm with a blood pressure of 134/73 mmHg. The EKG at the peak infusion revealed sinus rhythm with no significant ST-T wave changes. Isolated PVCs noted during Lexiscan infusion.. Sestamibi was injected 20 seconds after the Lexiscan infusion. Blood pressure at the end of the recovery phase was 133/73 mmHg with a heart rate of 72 beats per minute. CONCLUSION: 1. No significant EKG changes with the LexiScan infusion. 2. No LexiScan induced chest pain or cardiac arrhythmia. 3. Normal blood pressure and heart rate response. 4. Sestamibi/sestamibi perfusion scan pending; see separate report. Electronically Signed On 06-15-2022 13:02:00 CDT by Tere Joyner M.D. [id number]
--- NOTE | 2022-06-11 08:26 | NMCV_ITS ---
NM shanel perf SPECT r/s* [id number] Levi Madrid Age: 62 Gender: M : 1960 Exam Date: 06/11/2022 09:17 Ordering Phys: Tere Joyner MD ([email or web address]) Technologist: JUAN J Kyle Exam Location: [facility] Indications: SHORTNESS OF BREATH, CHEST PAIN STRESS TEST Please see separate stress test report in [facility] for full findings IMAGE PROTOCOL Rest/Stress 1 Lexiscan Day Radiopharmaceutical Dose (mCi) Administration Site Administered by Rest: Tc-99m 10.6 IV JUAN J Ocampo Sestamibi Stress:Tc-99m 32.4 IV JUAN J Ocampo Sestamibi Rest: 60 Discovery 630 Stress: 30 Discovery 630 0.4mg Lexiscan. Images obtained in supine and prone position. SPECT RESULTS Technical Quality: Excellent Raw Data Analysis: Normal Image Corrections: No attenuation or motion correction applied Summed Stress Score: 11 Summed Rest Score: 13 Summed Difference Score: 0 PERFUSION FINDINGS Medium size perfusion abnormality of basal to mid anterolateral, basal to mid inferolateral and apical lateral duran on rest and stress images. FUNCTIONAL RESULTS (calculated via Gated SPECT) Stress Image LV EF (%): 43 Stress EDV (mL):160 TID: 1.1 Stress ESV (mL):91 FUNCTIONAL FINDINGS: The left ventricle is normal in size. Transient Ischemia Dilatation of 1.1. The left ventricular ejection fraction is reduced with a value of 43%. Mild global hypokinesis. Abnormal septal motion. Increased end-diastolic end-systolic volumes. IMPRESSIONS 1. Medium sized fixed perfusion abnormality of basal to mid anterolateral, basal to mid inferolateral and apical lateral duran. 2. This likely represents old myocardial infarction in circumflex artery territory. 3. The left ventricular ejection fraction is reduced with a value of 43%. 4. No EKG changes with Lexiscan infusion. Refer to separate report for details. 5. No coronary ischemia based on the study. Tere Joyner MD (Electronically Signed) Final Date: 15 June 2022 17:16 S
[2022-06-11] MEDS: regadenoson 0.4 Mg/5 ml Syringe IVP (09:55)
[2022-06-11 10:18] VITALS: BP 133/98; PULSE 73
--- NOTE | 2022-06-11 12:00 | USCV_ITS ---
Levi Madrid Age: 62 Gender: M : 1960 Exam Date: 06/11/2022 08:36 Ordering Phys: Tere Joyner MD ([email or web address]) Technologist: CAL [place] [facility] [place]: CAD, SHORTNESS OF BREATH, CHEST PAIN BP: 134 / 70 HR: 60 Rhythm: Sinus Technical Quality: Suboptimal MEASUREMENTS (Male / Female) Normal Values 2D ECHO LVOT Diameter 2.0 cm LV Ejection Fraction MOD 2C 25.6 % LV Ejection Fraction 2C AL 29.6 % LA Diameter 2.4 cm LA Width 3.6 cm RA Width 4.1 cm RA Height 4.4 cm Aorta at Sinotubular Diameter 2.5 cm IVC Diameter 1.8 cm M-MODE MV E Point Septal Separation 1.0 cm DOPPLER AV Peak Velocity 87.3 cm/s MV Peak Velocity 121.0 cm/s MV Area PHT 3.0 cm squared Mitral E to A Ratio 0.9 MV E' Velocity 39.5 cm/s Mitral E to MV E' Ratio 6.4 Mitral E to LV E' Lateral Ratio 6.8 Mitral E to LV E' Septal Ratio 6.1 TV Peak E Velocity 37.0 cm/s Right Atrial Pressure 3.0 mmHg PV Peak Velocity 94.0 cm/s RV Acceleration Time 0.1 s RV Ejection Time 0.4 s RV AcT/ET 0.4 FINDINGS Left Ventricle Normal left ventricular cavity size. Moderately decreased left ventricular systolic function. Left ventricular ejection fraction is estimated at 35 %. Moderate global hypokinesis. Abnormal septal motion consistent with conduction abnormality. Right Ventricle Normal right ventricular size. Low normal right ventricle systolic function. Right Atrium Normal right atrial size. Left Atrium Mildly increased left atrial size. Mitral Valve Mildly thickened mitral valve. No mitral valve stenosis. No mitral valve regurgitation. Aortic Valve Probably trileaflet aortic valve. No aortic valve stenosis. No aortic valve regurgitation. Tricuspid Valve Trace tricuspid valve regurgitation. Pulmonic Valve Structurally normal pulmonic valve. No pulmonary valve stenosis. Trace pulmonary valve regurgitation. Pericardium No pericardial effusion. Aorta Normal size aortic root and proximal ascending aorta. IVC Normal IVC dimension with >50% respiratory change of the inferior vena cava. CONCLUSIONS 1. Normal left ventricular cavity size. Moderately decreased left ventricular systolic function. Left ventricular ejection fraction is estimated at 35 %. Moderate global hypokinesis. 2. Normal right ventricular size. Low normal right ventricle systolic function. 3. When compared to previous study dated 01/13/2022, left ventricular systolic function seems to have improved. Tere Joyner MD (Electronically Signed) Final Date: 15 June 2022 13:24 S
== END 2022-06-11 07:43 | disposition home or self-care (01) ==
LOC: RAD 07:44
PROVIDERS: PCP Family Medicine Adult Medicine; Visit Provider Internal Medicine Cardiovascular Disease
DX: R07.9 Chest pain, unspecified (principal); R06.02 Shortness of breath; I25.10 Atherosclerotic heart disease of native coronary artery without angina pectoris
CPT/HCPCS: 78452; 93017; 93306; A9500; J2785

== ENCOUNTER → 2022-06-12 08:16 | Outpatient (BNVA) | payer MEDICAID, SELFPAY | PROVIDERS: PCP Family Medicine Adult Medicine; Visit Provider Family Medicine Adult Medicine | DX: F06.31 Mood disorder due to known physiological condition with depressive features (principal); E87.5 Hyperkalemia; I10 Essential (primary) hypertension; R22.2 Localized swelling, mass and lump, trunk; I25.10 Atherosclerotic heart disease of native coronary artery without angina pectoris; J44.9 Chronic obstructive pulmonary disease, unspecified; I50.20 Unspecified systolic (congestive) heart failure; Z87.891 Personal history of nicotine dependence; R91.8 Other nonspecific abnormal finding of lung field | CPT/HCPCS: 80048 ==

== ENCOUNTER → 2023-03-11 07:13 | Outpatient (BNVA) | payer MEDICAID, SELFPAY | PROVIDERS: PCP Family Medicine Adult Medicine; Visit Provider Family Medicine Adult Medicine | DX: I10 Essential (primary) hypertension (principal); J44.9 Chronic obstructive pulmonary disease, unspecified; E87.5 Hyperkalemia | CPT/HCPCS: 80053; 80061; 84443; 85025 ==

== ENCOUNTER 2023-03-23 07:59 | Outpatient (CLI) | payer MEDICAID, SELFPAY ==
--- NOTE | 2023-03-23 08:30 | CT_ITS ---
WS: [id number] LDCT LUNG CANCER SCREENING TECHNIQUE: Noncontrast CT of the chest with coronal and sagittal reformatted images. CLINICAL INFORMATION: follow up pulmonary nodule ORDER DATE: 03/23/2023 8:11 AM COMPARISON: Noncontrast study performed 01/12/2022 DLP: 42.29 mGy.cm DIvol: Mean CTDIvol: 0.50 (mGy) All CT scans at [facility] use at least one of these dose optimization techniques: automated e xposure control; mA and/or kV adjustment per patient size (includes targeted exams where dose is matc hed to clinical indication); or iterative reconstruction. FINDINGS: Stable appearing extensive pleural and pulmonary parenchymal scarring in the left pulmonary apex and pleural cavity. The lungs are hyperinflated with moderately advanced emphysematous change. Mild apica l pleural thickening in the superior posterior right pleural cavity. No infiltrates. No suspicious pu lmonary mass or nodule. The trachea and mainstem bronchi are patent. No significant mediastinal or hi lar lymphadenopathy. The thoracic aorta is normal in caliber. The main pulmonary arteries are unremar kable. No pericardial effusion. Coronary artery calcifications. Signs of previous sternotomy. CT sect ions the upper abdomen demonstrate a probable small cyst in the left kidney. No other significant fin ding. Osseous structures of the thorax are unremarkable. CT/CT lung screening [id number] IMPRESSION: 1. No suspicious pulmonary mass or nodule. No lymphadenopathy in the chest. 2. Chronic changes of fibrosis and emphysematous bleb formation in both lung ap ices. Also changes of pleural thickening and scarring in both pleural apices mo st marked on the left. The appearance is stable since the last exam. 3. Advanced central lobar emphysematous change. LUNG-RADS: 1-Negative FOLLOW UP: 12 Month: Continue annual screening with LDCT
== END 2023-03-23 08:00 | disposition home or self-care (01) ==
PROVIDERS: PCP Family Medicine Adult Medicine; Visit Provider Family Medicine Adult Medicine
DX: Z12.2 Encounter for screening for malignant neoplasm of respiratory organs (principal); R91.8 Other nonspecific abnormal finding of lung field; J44.9 Chronic obstructive pulmonary disease, unspecified; Z87.891 Personal history of nicotine dependence
CPT/HCPCS: 71271; 80053; 80061; 84443; 85025

== ENCOUNTER → 2024-02-23 08:11 | Outpatient (BNVA) | payer MEDICAID, SELFPAY | PROVIDERS: PCP Family Medicine Adult Medicine; Visit Provider Family Medicine Adult Medicine | DX: I1A.0 Resistant hypertension (principal); Z87.891 Personal history of nicotine dependence; I25.728 Atherosclerosis of autologous artery coronary artery bypass graft(s) with other forms of angina pectoris; I50.20 Unspecified systolic (congestive) heart failure; J43.2 Centrilobular emphysema | CPT/HCPCS: 80053; 80061; G0103 ==

== ENCOUNTER → 2024-10-13 11:05 | Outpatient (BNVA) | payer MEDICARE, MEDICAID, SELFPAY | PROVIDERS: PCP Family Medicine Adult Medicine; Visit Provider Internal Medicine Cardiovascular Disease | DX: I25.10 Atherosclerotic heart disease of native coronary artery without angina pectoris (principal); R01.1 Cardiac murmur, unspecified; I42.0 Dilated cardiomyopathy; I11.0 Hypertensive heart disease with heart failure; I50.22 Chronic systolic (congestive) heart failure; I49.3 Ventricular premature depolarization; E78.5 Hyperlipidemia, unspecified; Z87.891 Personal history of nicotine dependence | CPT/HCPCS: 99214 ==

== ENCOUNTER 2025-01-21 17:28 | Emergency (ER) | payer MEDICARE, MEDICAID, SELFPAY ==
[2025-01-21 17:31] VITALS: BP 143/72; PULSE 89; RESP 16; TEMP 36.6; O2SAT 96; BMI 2441.0
--- NOTE | 2025-01-21 17:37 | ECG_ITS ---
[facility] Test Date: 2025-01-21 Pat Name: Levi Madrid Department: Room: Gender: Male Testboard Operator: : 1960 Requested By: Mateus German Order Number: [id number] Rj MD: Opal Fisher M.D. Measurements Intervals [place] Rate: 88 P: 77 SC: 151 QRS: 111 QRSD: 121 T: 106 QT: 358 QTc: 435 Interpretive Statements SINUS RHYTHM WITH OCCASIONAL SUPRAVENTRICULAR PREMATURE COMPLEXES POSSIBLE LEFT ATRIAL ENLARGEMENT [-0.1mV P-WAVE IN V1/V2] POSSIBLE RIGHT VENTRICULAR HYPERTROPHY [SOME/ALL OF: PROMINENT R IN V1, LATE TRANSITION, RAD, MALGORZATA, SSS] ST DEVIATION AND MODERATE T-WAVE ABNORMALITY, CONSIDER ANTERIOR ISCHEMIA [-0.1+ mV T-WAVE IN V3/V4] Compared to ECG 01/12/2022 16:43:51 T-wave abnormality now present Possible ischemia now present Electronically Signed On 01-21-2025 19:53:28 CDT by Opal Fisher M.D. [email or web address] [id number]
--- NOTE | 2025-01-21 17:38 | XRR_ITS ---
PROCEDURE INFORMATION: Exam: XR Chest Exam date and time: 01/21/2025 5:51 PM Age: 64 years old Clinical indication: Shortness of breath; Prior surgery; Surgery date: 6+ months; Surgery type: Cabg; SOB TECHNIQUE: Imaging protocol: Radiologic exam of the chest. Views: 1 view. COMPARISON: CT lung screening [id number] 03/23/2023 8:14 AM FINDINGS: Lungs: The lungs are hyperinflated, but clear. Pleural spaces: Unremarkable. No pleural effusion. No pneumothorax. Heart/Mediastinum: Unremarkable. No cardiomegaly. Bones/joints: Sternotomy wires present. Mild degenerative changes involve the spine and shoulders. XR/XR chest 1V portable [id number] IMPRESSION: Pulmonary emphysematous changes. No evidence of pneumonia.
[2025-01-21 17:45] LABS: Basophils % 0.2 %; Eosinophils % 0.2 %; Hematocrit 44.8 % (37-53); Lymphocytes # 1.2 10^3/uL (0.8-4.8); Lymphocytes % 11.6 %; Mean Corpuscular HGB Conc 32.8 g/dL (30-55); Mean Corpuscular Hemoglobin 28.8 pg (27-33); Mean Corpuscular Volume 87.7 fl (82-101); Mean Platelet Volume 10.1 fL (7.4-10.4); Monocytes # 0.7 10^3/uL (0.2-0.9); Monocytes % 6.6 %; Neutrophils # 8.21 10^3/uL (1.8-7.7); Neutrophils % 80.9 %; Nucleated Red Blood Cells % 0 %; Platelet Count 238 10^3/cmm (157-399); Red Blood Count 5.11 10^6/uL (3.85-5.65); White Blood Count 10.15 10^3/uL (3.29-11.43)
[2025-01-21 17:52] VITALS: PULSE 85; RESP 26; O2SAT 94
[2025-01-21 18:00] VITALS: BP 158/56; PULSE 70; O2SAT 95
[2025-01-21 18:17] LABS: Alanine Aminotransferase 12 U/L (0-41); Albumin Level 4.4 g/dL (3.5-5.2); Alkaline Phosphatase 98 U/L (40-130); Anion Gap 20.1 (5-19); Aspartate Amino Transferase 17 U/L (0-40); Blood Urea Nitrogen 9 mg/dL (8-23); Carbon Dioxide 24 mmol/L (22-29); Chloride 96 mmol/L (98-107); Creatinine Clr Calc Pharmacy 87.7485; Globulin 3.4 g/dL (1.3-4.6); Glomerular Filtration Rate 114.3 mL/min (90-130); Glucose 102 mg/dL (65-115); NT Pro B Type Natriuretic Pept 1106 pg/mL (0-125); Osmolality Calculated 281 mOsm/kg (285-295); Potassium 4.1 mmol/L (3.5-5.1); Sodium 136 mmol/L (136-145); Total Bilirubin 0.6 mg/dL (0.15-1.2); Total Protein 7.8 g/dL (6.6-8.7)
--- NOTE | 2025-01-21 18:39 | ED_ITS ---
HPI - SOB/Dyspnea 2 General: Chief Complaint: Shortness of Breath/Dyspnea Stated Complaint: sob Time Seen by Provider: 01/21/25 18:06 History of Present Illness: HPI Narrative: 64-year-old male with a history of COPD. He presents with shortness of breath. He says it really started yesterday/last night. Became worse today. He was trying to bentley his grandson today, and could not catch his breath. He feels feverish/chills. He has been coughing with productive white sputum. No swelling to his feet. No chest pain. No sick contacts. He is on room air currently Related Data Previous Rx's ?Medication ?Instructions ?Recorded aspirin 81 mg tablet,delayed 81 mg PO DAILY circulatio n #100 03/11/23 release tabs hydralazine 50 mg tablet 50 mg PO BID #180 tabs 08/23 atorvastatin 40 mg tablet 40 mg PO BEDTIME cholesterol #30 11/19/23 tabs pantoprazole 40 mg tablet,delayed 40 mg PO .q hs PRN h eart burn #60 02/23/24 release tabs tiotropium bromide 2.5 2 puff inhalation DAILY 03/08 09/29 mcg/actuation mist for inhalation breathing/shortness of breath #4 (Spiriva Respimat) grams carvedilol 6.25 mg tablet 6.25 mg PO BID heart/blood 0 05/25/24 pressure #60 tabs losartan 25 mg tablet 25 mg PO DAILY blood 4 pressure/kidney #30 tabs albuterol sulfate 90 mcg/actuation 2 inh inhalation Q4 H PRN shortness 01/21/25 aerosol inhaler of breath or wheezing #6.7 g scarlet doxycycline hyclate 100 mg tablet 100 mg PO BID 7 days #14 tabs 01/21/25 methylprednisolone 4 mg tablets in See Rx Instructions PO .COMPLEX 01/21/25 a dose pack (Medrol (Saman)) #21 ea Allergies Allergy/AdvReac Type Severity Reaction Status Date / Time No Known Allergies Allergy Verified 10/13/24 11:37 [facility] ED 2 PFSH: Medical History Asymptomatic bradycardia Systolic CHF Chronic GERD Former smoker quit 01/2022 after 34 years 1-2 ppd Hypertension Depression due to physical illness Coronary artery disease Stents > 10 and CABG x3 vessels 05/16/2015 COPD (chronic obstructive pulmonary disease) 03/23/2023 advanced central lobar emphysematous changes Surgical History Stented coronary artery History of coronary artery bypass graft Social History Smoking and tobacco/nicotine status: former use of tobacco/nicotine Quit status (tobacco/nicotine): has quit using Year quit tobacco: 2021 Former quit date comment: started age 18, quit and restarted multiple times, 2 ppd x 43 year Hx Alcohol intake: never Substance/Drug Use: current Substance/Drug use frequency: few times a month Adopted: No Caregiver/support person: No Lives independently: Yes service: No Current occupational status: unemployed Current gender identity: Male Special tomi needs: No Physical Exam 2 Const: COMMON NORMALS: no acute distress GENERAL APPEARANCE: cooperative; not ill appearing and not frail appearing HENMT: COMMON NORMALS: normocephalic, atraumatic and Normal external nose present HEAD & SCALP: normocephalic and atraumatic FACE & SINUS: normal facial exam and face symmetric NOSE: Normal external nose present Eye: COMMON NORMALS: Equal, round and reactive pupils present and EOMs intact bilaterally PUPIL: Yes Equal, round and reactive pupils present Neck/C-Spine: GENERAL: Yes trachea midline Chest: CHEST: Yes Symmetrical chest wall rise Resp: COMMON NORMALS: normal respiratory effort, No retractions, No use of accessory muscles and clear to auscultation bilaterally AUSCULTATION: clear to auscultation bilaterally and diminished lung sounds Cardio: COMMON NORMALS: regular rate and regular rhythm RATE: regular rate RHYTHM: regular rhythm GI: COMMON NORMALS: Normal to inspection, nondistended, normoactive bowel sounds present Extremity: COMMON NORMALS: no pedal edema Neuro: RUDY COMA SCALE: document GCS findings Rudy coma scale eye opening: Spontaneous Ventura coma scale verbal response: Orientated Ventura coma scale motor response: Obey commands Rudy coma scale total score: 15 S ENSORY EXAM: Yes extremities (intact) Psych: COMMON NORMALS: speech normal SPEECH: Yes normal speech Skin: COMMON NORMALS: no rashes or lesions noted GENERAL SKIN EXAM: no rashes or lesions noted Course 2 Vital Signs: Vital signs: Vital Signs Temperature 97.9 F 01/21/25 17:31 Pulse Rate 85 01/21/25 20:46 Respiratory Rate 20 H 01/21/25 20:20 Blood Pressure 115/54 01/21/25 20:46 Pulse Oximetry 96 01/21/25 20:46 Oxygen Delivery Me thod Room Air 01/21/25 20:20 Oxygen Flow Rate 2 01/21/25 18:00 MDM - SOB/Dyspnea Medical Decision Making Patient is breathing room air. Current saturation 97%. He is normotensive. Vitals are stable. CBC is normal. BMP is normal. Chest x-rayDoes not show definite infiltrate, does show emphysematous lungs. No heart enlargement. No pneumothorax. He will be reated for COPD exacerbation Lab Data 01/21/25 17:37 01/21/25 17:37 Labs/Radiology: Radiology Impressions Chest X-Ray 01/21/25 17:38 IMPRESSION: Pulmonary emphysematous changes. No evidence of pneumonia. Laboratory Results WBC 10.15 10^3/uL (3.29-11.43) 01/21/25 17:37 RBC 5.11 10^6/uL (3.85-5.65) 01/21/25 17:37 Hgb 14.70 g/dL (11.27-16.99) 01/21/25 17:37 Hct 44.8 % (37-53) 01/21/25 17:37 MCV 87.7 fl (82-101) 01/21/25 17:37 MCH 28.8 pg (27-33) 01/21/25 17:37 MCHC 32.8 g/dL (30-55) 01/21/25 17:37 RDW 13.0 % (12.1-15.1) 01/21/25 17:37 Plt Count 238 10^3/cmm (157-399) 01/21/25 17:37 MPV 10.1 fL (7.4-10.4) 01/21/25 17:37 Neut % (Auto) 80.9 % 01/21/25 17:37 Lymph % (Auto) 11.6 % 01/21/25 17:37 Cook % (Auto) 6.6 % 01/21/25 17:37 Eos % (Auto) 0.2 % 01/21/25 17:37 Baso % (Auto) 0.2 % 01/21/25 17:37 Neut # (Auto) 8.21 10^3/uL (1.8-7.7) H 01/21/25 17:37 Lymph # (Auto) 1.2 10^3/uL (0.8-4.8) 01/21/25 17:37 Cook # (Auto) 0.7 10^3/uL (0.2-0.9) 01/21/25 17:37 Eos # (Auto) 0.0 10^3/uL (0.0-0.8) 01/21/25 17:37 Baso # (Auto) 0.0 10^3/uL (0.0-0.1) 01/21/25 17:37 Nucleated RBC % (auto) 0 % 01/21/25 17:37 Nucleated RBCs # 0.0 /100WBC 01/21/25 17:37 Sodium 136 mmol/L (136-145) 01/21/25 17:37 Potassium 4.1 mmol/L (3.5-5.1) 01/21/25 17:37 Chloride 96 mmol/L (98-107) L 01/21/25 17:37 Carbon Dioxide 24 mmol/L (22-29) 01/21/25 17:37 Anion Gap 20.1 (5-19) H 01/21/25 17:37 BUN 9 mg/dL (8-23) 01/21/25 17:37 Creatinine 0.7 mg/dL (0.7-1.2) 01/21/25 17:37 GFR Calculation 114.3 mL/min (90-130) 01/21/25 17:37 Glucose 102 mg/dL (65-115) 01/21/25 17:37 Calculated Osmolality 281 mOsm/kg (285-295) L 01/21/25 17:37 Calcium 9.0 mg/dL (8.5-10.5) 01/21/25 17:37 Total Bilirubin 0.6 mg/dL (0.15-1.2) 01/21/25 17:37 AST 17 U/L (0-40) 01/21/25 17:37 ALT 12 U/L (0-41) 01/21/25 17:37 Alkaline Phosphatase 98 U/L (40-130) 01/21/25 17:37 NT-Pro-B Natriuret Pep 1106 pg/mL (0-125) H 01/21/25 17:37 Total Protein 7.8 g/dL (6.6-8.7) 01/21/25 17:37 Albumin 4.4 g/dL (3.5-5.2) 01/21/25 17:37 Globulin 3.4 g/dL (1.3-4.6) 01/21/25 17:37 All radiology interpretation(s) finalized by discharge Discharge Plan Discharge Patient Disposition: Home Clinical Impression: Acute exacerbation of chronic obstructive airways disease Condition: Stable Prescriptions: New methylprednisolone [Medrol (Saman)] 4 mg tablets,dose pack See Rx Instructions .ROUTE .COMPLEX Qty: 21 0RF Rx Instructions: orally per package directions albuterol sulfate 90 mcg/actuation HFA aerosol inhaler 2 inh INHALATION Q4H PRN (Reason: shortness of breath or wheezing) Qty: 6.7 1RF doxycycline hyclate 100 mg tablet 100 mg PO BID 7 Days Qty: 14 0RF No Action hydralazine 50 mg tablet 50 mg PO BID Qty: 180 2RF atorvastatin 40 mg tablet 40 mg PO BEDTIME Qty: 30 11RF pantoprazole 40 mg tablet,delayed release (DR/EC) 40 mg PO .q hs PRN (Reason: heart burn) Qty: 60 2RF aspirin 81 mg tablet,delayed release (DR/EC) 81 mg PO DAILY Qty: 100 3RF Spiriva Respimat 2.5 mcg/actuation mist 2 puff inhalation DAILY Qty: 4 5RF carvedilol 6.25 mg tablet 6.25 mg PO BID Qty: 60 11RF losartan 25 mg tablet 25 mg PO DAILY Qty: 30 5RF Discharge Orders: Discharge ED (Routine); Ordered 01/21/25 Ordered By: Jaime Olea Referrals: Mayur Burr MD [Primary Care Provider, Family Practice] Patient Instructions: COPD (Chronic Obstructive Pulmonary Disease) (ED), Opioid Safety, Pain Management Activity Restrictions/Additional Instructions: Medication as directed. Use the inhaler every 4 hours while awake for the first 48 hours whether you feel you needed or not, then as needed following that. Return for worsening shortness of breath despite treatment, fever despite 3-4 doses of antibiotics, chest pain, other concerning symptoms. Case management has been asked to find you a doctor to follow-up with. You should get a call from them this week. Print Language: Kazakh Coding Level of Care Code ED Baked Goods Stock Clerk for Juan M Mason
[2025-01-21] MEDS: doxycycline 100 mg Tablet PO (20:03)
[2025-01-21] MEDS: methylPREDNISolone sod succ 125 mg/2 mL INJ IVP (20:04)
[2025-01-21 20:15] VITALS: PULSE 99; RESP 18; O2SAT 96
[2025-01-21] MEDS: ipratropium-albuterol 3 mL Neb INHALATION (20:18)
[2025-01-21 20:20] VITALS: PULSE 105; RESP 20; O2SAT 100
[2025-01-21 20:46] VITALS: BP 115/54; PULSE 85; O2SAT 96
== END 2025-01-21 20:47 | disposition home or self-care (01) ==
PROVIDERS: Emergency Medicine; Emergency Provider Emergency Medicine; PCP Family Medicine Adult Medicine
DX: J44.1 Chronic obstructive pulmonary disease with (acute) exacerbation (principal); Z79.82 Long term (current) use of aspirin; Z87.891 Personal history of nicotine dependence; J44.9 Chronic obstructive pulmonary disease, unspecified; I25.10 Atherosclerotic heart disease of native coronary artery without angina pectoris; I11.0 Hypertensive heart disease with heart failure; I50.20 Unspecified systolic (congestive) heart failure
CPT/HCPCS: 71045; 80053; 83880; 85025; 93005; 94640; 96374; 99285; J2919; J9999

== ENCOUNTER → 2025-02-23 09:55 | Outpatient (BNVA) | payer MEDICARE, SELFPAY | PROVIDERS: PCP Family Medicine Adult Medicine; Visit Provider Family Medicine | DX: R06.02 Shortness of breath (principal); I50.22 Chronic systolic (congestive) heart failure | CPT/HCPCS: 80053; 83880 ==

== ENCOUNTER 2025-03-30 11:04 | Outpatient (CLI) | payer MEDICARE, SELFPAY ==
--- NOTE | 2025-03-30 11:15 | CT_ITS ---
WS: [id number] LDCT LUNG CANCER SCREENING HISTORY: screening TECHNIQUE: Axial imaging performed from the apices to 1 cm below the costophrenic angles. Coronal and sagittal reformats are submitted with axial MIP series. All CT scans at [facility] use at least one of these dose optimization techniques: automated exposure control; mA and/or kV adjustment per patient size (includes targeted exams where dose is matched to clinical indication); or iterative reconstruction. DLP: 52.67 mGy.cm DIvol: Mean CTDIvol: 0.70 (mGy) COMPARISON: 03/23/2023 Diagnostic quality: Satisfactory Lungs: Severe bullous emphysema. Marked biapical pleural thickening and scarring and fibrosis similar to 03/23/2023. Numerous scattered very tiny pulmonary nodules. These are probably postinflammatory. There are additional calcified granulomata. There are no nodules greater than 4 mm. No endobronchial lesions. Heart: Normal size heart with no pericardial effusion.. Extensive coronary artery calcifications. Prior CABG. Other findings: Mild atherosclerosis aorta. Normal size pulmonary artery and aorta. No pathologically enlarged lymph nodes. No adrenal mass. Osteopenia. CT/CT lung screening [id number] IMPRESSION: LUNG-RADS: 2-Benign Appearance or Behavior FOLLOW UP: 12 Month: Continue annual screening with LDCT OTHER FINDINGS (S MODIFIER): None.
== END 2025-03-30 11:05 | disposition home or self-care (01) ==
LOC: RAD 11:05
PROVIDERS: PCP Family Medicine; Visit Provider Family Medicine
DX: Z12.2 Encounter for screening for malignant neoplasm of respiratory organs (principal); F17.219 Nicotine dependence, cigarettes, with unspecified nicotine-induced disorders; J43.9 Emphysema, unspecified
CPT/HCPCS: 71271

== ENCOUNTER → 2025-08-29 16:03 | Outpatient (BNVA) | payer MEDICARE, SELFPAY | PROVIDERS: PCP Family Medicine; Visit Provider Family Medicine Adult Medicine | DX: R06.02 Shortness of breath (principal) | CPT/HCPCS: 71046 ==

== ENCOUNTER 2025-08-29 16:50 | Emergency (ER) | payer MEDICARE, SELFPAY ==
[2025-08-29 16:57] VITALS: BP 161/75; PULSE 94; RESP 26; TEMP 36.6; O2SAT 95
--- OUTSIDE RECORDS SUMMARY | 2025-08-29 16:57 | XMS_ITS | Encounter Summary ---
Author Organization [facility] Address [address] [place] [address] Care Team Providers Care Keypunch Operator Name Role Phone Geronimo Otero MD Primary Care Provider [phone] Encounter Details Date Type Department Care Team (Latest Contact Info) Description 09/24/2004 Outpatient Historical [facility] Cardiology- [place] [address] [place] [address] Tripp Heredia MD [address] [place] [address] [address] [place] [address] Old myocardial infarct (Primary Dx); MIXED HYPERLIPIDEMIA Social History Tobacco Use Types Packs/Day Years Used Date Smoking Tobacco: Never Assessed Sex and Gender Information Value Date Recorded Sex Assigned at Not on file 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
--- OUTSIDE RECORDS SUMMARY | 2025-08-29 16:57 | XMS_ITS | Encounter Summary ---
Author Organization [facility] Address [address] [place] [address] Care Team Providers Care Bed And Breakfast Innkeeper Name Role Phone Geronimo Otero MD Primary Care Provider [phone] Encounter Details Date Type Department Care Team (Late st Contact Info) Description 10/20/2005 Outpatient Historical [facility] Cardiology [facility] [address] [place] [address] Lance Ventura MD [address] [place] [address] CORON ATHEROSCL MEKORYUK CORON VESSEL (Primary Dx); CHEST PAIN NOS Social History Tobacco Use Types Packs/Day Years Used Date Smoking Tobacco: Never Assessed Sex and Gender Information Value Date Recorded Sex Assigned at Not on file 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
--- OUTSIDE RECORDS SUMMARY | 2025-08-29 16:57 | XMS_ITS | Encounter Summary ---
Author Organization [facility] Address [address] [place] [address] Care Team Providers Care Shrink Pit Operator Name Role Phone Geronimo Otero MD Primary Care Provider [phone] Encounter Details Date Type Department Care Team (Latest Contact Info) Description 10/19/2005 Outpatient Historical [facility] [place] [address] [place] [id number] Olivia Heredia, RURAL CARRIER [address] [facility] [address] [place] [address] CORON ATHEROSCL [place] CORON VESSEL (Primary Dx); PRECORDIAL PAIN; MIXED HYPERLIPIDEMIA Social History Tobacco Use Types Packs/Day Years Used Date Smoking Tobacco: Never Assessed Sex and Gender Information Value Date Recorded Sex Assigned at Not on file 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
--- OUTSIDE RECORDS SUMMARY | 2025-08-29 16:57 | XMS_ITS | Clinical Summary ---
Author Organization [facility] Address [address] [facility] Attn: Epic [place] [address] Care Team Providers Care Fruit Thinner Machine Operator Name Role Phone Geronimo Otero MD Primary Care Provider [phone] Allergies No known active allergies Active Problems Problem Noted Date Diagnosed Date Chest wall pain 03/10/2013 COPD (chronic obstructive pulmonary disease) 12/2012 CAD (coronary artery disease) 03/09/2013 Overview (01/02/2021): 02/2013 - [facility] [place] 3.0 mm 16 mm PROMUS placed to the mid RCA and a 3.5 mm 16 mm PROMUS placed to the distal RCA 1. The LVEF is 50%-55%. 03/2013 - [facility] - 3.5 mm 12 mm PROMUS was placed to the proximal RCA and a 2.75 mm 12 mm PROMUS placed to the mid LAD. 03/2013 - Coronary angiography for evaluation of chest pain revealed:2. Continued patency of all the previously implanted RCA stents. There is a 20%-40% in-stent narrowing within the old Cypher mid vessel stent from 2003.3. A 30%-40% diffusely narrowed small caliber left main.4. Patent proximal circumflex.5. A 70%-75% ostial diagonal branch stenosis with an adjacent 50%-60% narrowing in the LAD. Doppler flow wire interrogation negative for flow restriction of these lesions. The more distal LAD stent from [facility] last week is widely patent.6. Medical therapy appears to be the most appropriate management option and the patient's chest pain appears to be out of proportion to the degree of disease noted. Resolved Problems Problem Noted Date Diagnosed Date Resolved Date ACS (acute coronary syndrome) 03/09/2013 03/10/2013 Family History Medical History Relation Name Comments Heart Disease Brother 1 Heart Disease Brother 2 Heart Disease Father Heart Disease Mother Heart Disease Sister 1 Heart Disease Sister 2 Heart Disease Sister 3 Heart Disease Sister 4 Relation Name Status Comments Brother 1 Brother 2 Father Mother Sister 1 Alive Sister 2 Alive Sister 3 Alive Sister 4 Alive Social History Tobacco Use Types Packs/Day Years Used Date Smoking Tobacco: Former Cigarettes 0 Q uit: 02/23/2013 Smokeless Tobacco: Never Alcohol Use Standard Drinks/Week Comments No 0 (1 standard drink = 0.6 oz pur e alcohol) Sex and Gender Information Value Date Recorded Sex Assigned at Not on file 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 Gender Identity Not on file Sexual Orientation Not on file Plan of Treatment Health Maintenance Due Date Last Done Comments DTAP/TDAP/TD VACCINES (1 - Tdap) 1981 COLORECTAL SCREENING 2007 Colorectal Cancer Screening 2007 FIT-DNA Q 3 years 2007 FIT/FOBT Q 1 year 2007 Flex Sig/CT Colonography Q 5 years 2007 ZOSTER VACCINE (1 of 2) 2012 INFLUENZA VACCINE (#1) 2025 RSV VACCINE (60+ or ) (1 - 1-dose 75+ series) 2037 Care Teams Fruit Thinner Machine Operator Relationship Specialty Start Date End Date Geronimo Otero MD [address] [facility] [address] [place] [phone] PCP - General 07/25/04
--- OUTSIDE RECORDS SUMMARY | 2025-08-29 16:57 | XMS_ITS | Clinical Summary ---
Author Organization [facility] Address [address] [place] [address] Phone Care Team Providers Care Shipping Agent Name Role Phone Geronimo Otero MD Primary Care Provider [phone] Allergies No known active allergies Medications simvastatin (ZOCOR) 40 mg Oral tablet Take 40 mg by mouth Daily LATE. Active clopidogrel (PLAVIX) 75 mg Oral Tab Take 75 mg by mouth daily. Active aspirin (WENDY) 325 mg Oral tablet Take 325 mg by mouth daily. Active nitroglycerin (NITROSTAT) 0.[address] 0.4 mg under tongue every 5 minutes as needed. Active metoprolol tartrate (LOPRESSOR) 25 mg Oral tablet Take 12.5 mg by mouth 2 times daily. Active ranitidine (ZANTAC) 150 mg Oral tablet Take 150 mg by mouth 2 times daily. Active Active Problems Problem Noted Date Diagnosed Date Chest wall pain 03/10/2013 CAD (coronary artery disease) 03/09/2013 Overview (03/29/2013): 02/2013 - [facility] - 3.0 mm 16 mm PROMUS placed to the mid RCA and a 3.5 mm 16 mm PROMUS placed to the distal RCA 1. The LVEF is 50%-55%. 03/2013 - [facility] - 3.5 mm 12 mm PROMUS was [...] lesions. The more distal LAD stent from [facility] last week is widely patent.6. Medical therapy appears to be the most appropriate management option and the patient's chest pain appears to be out of proportion to the degree of disease noted. 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 Gender Identity Not on file Sexual Orientation Not on file Occupation Industry Job Start Date Job End Date Not on file Not on file Not on file Not on file Last Filed Vital Signs Vital Sign Reading Time Taken Comments Blood Pressure 130/66 04/04/2013 2:36 PM CDT Pulse 64 04/04/2013 2:36 PM CDT Temperature 36.3 C (97.4 F) 03/10/2013 8:00 AM CDT Respiratory Rate 15 03/10/2013 7:00 AM CDT Oxygen Saturation 93% 03/10/2013 1:00 PM CDT Inhaled Oxygen Concentration - - Weight 60.6 kg (133 lb 9.6 oz) 04/04/2013 2:36 P M CDT Height 182.9 cm (6') 04/04/2013 2:36 PM CDT Body Mass Index 18.12 04/04/2013 2:36 PM CDT Plan of Treatment Health Maintenance Due Date Last Done Comments DTAP/TDAP/TD VACCINES (1 - Tdap) 1981 COLORECTAL SCREENING 2007 Colorectal Cancer Screening 2007 FIT-DNA Q 3 years 2007 FIT/FOBT Q 1 year 2007 Flex Sig/CT Colonography Q 5 years 2007 RSV VACCINE (60+ or ) (1 - Risk 50-74 years 1-dose series) 2012 ZOSTER VACCINE (1 of 2) 2012 INFLUENZA VACCINE (#1) 2025 Insurance [id number] [place] [address] MEDICAID PENDING Care Teams Shipping Agent Relationship Specialty Start Date End Date Geronimo Otero MD [address] [facility] [address] [place] [phone] PCP - General 07/25/04
--- OUTSIDE RECORDS SUMMARY | 2025-08-29 16:57 | XMS_ITS | Encounter Summary ---
Author Organization [facility] Address [address] [place] [address] Care Team Providers Care Front Loader Residential Driver Name Role Phone Geronimo Otero MD Primary Care Provider [phone] Encounter Details Date Type Department Care Team (Late st Contact Info) Description 07/25/2004 Inpatient Historical [facility] IN BED Tripp Heredia MD [address] [place] [address] [address] [place] [address] [facility] ([facility]) (Primary Dx) Social History Tobacco Use Types Packs/Day Years Used Date Smoking Tobacco: Never Assessed Sex and Gender Information Value Date Recorded Sex Assigned at Not on file 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 Gender Identity Not on file Sexual Orientation Not on file documented as of this encounter Plan of Treatment Not on file documented as of this encounter Visit Diagnoses Diagnosis Acute myocardial infarction, subendocardial infarction, initial episode of care (CMS/[facility])- Primary Acute myocardial infarction, subendocardial infarction, initial episode of care documented in this encounter Care Teams Front Loader Residential Driver Relationship Specialty Start Date End Date Geronimo Otero MD [address] [facility] [address] [place] [phone] PCP - General 07/25/04 documented as of this encounter
--- NOTE | 2025-08-29 17:06 | XRR_ITS ---
PROCEDURE INFORMATION: Exam: XR Chest Exam date and time: 08/29/2025 5:08 PM Age: 65 years old Clinical indication: Shortness of breath; Additional info: Short of breath TECHNIQUE: Imaging protocol: Radiologic exam of the chest. Views: 1 view. COMPARISON: CR XR chest 2V insp/exp [id number] 08/29/2025 4:08 PM FINDINGS: Lungs: Unremarkable. No consolidation. Pleural spaces: Unremarkable. No pleural effusion. No pneumothorax. Heart/Mediastinum: Unremarkable. No cardiomegaly. Bones/joints: Unremarkable. XR/XR chest 1V portable [id number] IMPRESSION: No acute findings.
--- NOTE | 2025-08-29 17:13 | ECG_ITS ---
[facility] Date: 2025-08-29 Pat Name: Levi Madrid Department: Room: Gender: Male Grind Operator: : 1960 Requested By: Cristina Demarco Order Number: [id number] Reading MD: STEVIE TOMLINSON Measurements Intervals [place] Rate: 75 P: 87 [place]: 149 QRS: 113 QRSD: 162 T: 1 QT: 444 QTc: 497 Interpretive Statements SINUS RHYTHM POSSIBLE LEFT ATRIAL ENLARGEMENT [-0.1mV P-WAVE IN V1/V2] RIGHT AXIS DEVIATION [QRS AXIS > 100] RIGHT BUNDLE BRANCH BLOCK [120+ ms QRS DURATION, UPRIGHT V1, 40+ ms S IN I/aVL/V4/V5/V6] INTERPRETATION BASED ON A DEFAULT AGE OF 40 YEARS Compared to ECG 01/21/2025 17:44:30 Right-axis deviation now present Right bundle-branch block now present T-wave abnormality no longer present Possible ischemia no longer present Electronically Signed On 08-29-2025 20:13:24 HEEL TURNER by STEVIE TOMLINSON [email or web address]
[2025-08-29 17:28] LABS: Hematocrit 41.8 % (37-53); Hemoglobin 13.90 g/dL (11.27-16.99); Mean Corpuscular HGB Conc 33.3 g/dL (30-55); Mean Corpuscular Hemoglobin 29.8 pg (27-33); Mean Corpuscular Volume 89.5 fl (82-101); Nucleated Red Blood Cells % 0 %; Platelet Count 187 10^3/cmm (157-399); Red Blood Count 4.67 10^6/uL (3.85-5.65); White Blood Count 11.41 10^3/uL (3.29-11.43)
--- NOTE | 2025-08-29 17:28 | W.ED.URI ---
HPI - URI/Sore Throat General: Chief Complaint: Upper Respiratory Infection Stated Complaint: SOB Dr Referal History of Present Illness: Patient is a 65-year-old gentleman that presents to the emergency room due to shortness of breath and cough since Wednesday, 5 days ago Context: Patient started having shortness of breath, worsening with exertion, chest tightness, nonproductive cough, that he states hurts the most, and fever before arrival at at 100.6 ?F at home. He states he has chills, upper respiratory symptoms, runny nose, however denies headache. No change in sputum. No sputum. Chest pain is more like a tightness. There is no pain discomfort, radiation. Worse with exertion. No nausea, or vomiting. No sick contact. Associated symptoms: Reports chest pain, fever(s) and nasal congestion; Deny abdominal pain, chills, diarrhea, headache(s), nausea or vomiting Related Data Previous Rx's ?Medication ?Instructions ?Recorded losartan 25 mg tablet 25 mg PO DAILY blood 08/14/24 Held on 02/23/25. pressure/kidney #30 tabs Instructions: Doctor's Order aspirin 81 mg tablet,delayed 81 mg PO DAILY circulation #100 02/23/25 release tabs hydralazine 50 mg tablet 50 mg PO BID #60 tabs 05/08/25 albuterol sulfate 90 mcg/actuation 2 inh inhalation Q4H PRN shortness 05/21/25 aerosol inhaler of breath or wheezing #6.7 grams atorvastatin 40 mg tablet See Rx Instructions .Route 07/20/25 .COMPLEX #30 tabs carvedilol 6.25 mg tablet See Rx Instructions .Route 07/20/25 .COMPLEX #60 tabs fluticasone fur. 100 mcg-umeclid 1 inh inhalation Q24H #60 ea 08/07/25 62.5 mcg-vilant 25 mcg inhalat.powder (Trelegy Ellipta) pantoprazole 40 mg tablet,delayed See Rx Instructions .Route 08/07/25 release .COMPLEX #30 tabs doxycycline hyclate 100 mg capsule 100 mg PO BID 10 days #20 caps 08/29/25 prednisone 10 mg tablets in a dose 10 mg PO DIRECTED #27 ea 08/29/25 pack Allergies Allergy/AdvReac Type Severity Reaction Status Date / Time No Known Allergies Allergy Verified 08/29/25 17:09 Review of Systems Const: Reports: fever(s), body aches, change in appetite, fatigue and change in sleep pattern; Denies: chills or diaphoresis Eyes: Denies: change in vision or eye discharge ENMT: Reports: nasal discharge and nasal congestion; Denies: throat pain, odynophagia or hoarseness Card: Reports: chest pain and dyspnea on exertion; Denies: palpitations, irregular heart rhythm or swelling of feet/ankles Resp: Reports: dyspnea, non-productive cough, wheezing, pain on inspiration and chest congestion; Denies: productive cough, stridor, change in phlegm color or hemoptysis GI: Denies: abdominal pain, nausea, vomiting or diarrhea : Denies: flank pain or difficulty urinating Musc: Denies: neck pain or back pain Skin/Breast: Denies: rash or pruritus Neuro: Denies: headache(s) or numbness in extremities PFSH ED PFSH: Medical History (Updated 08/29/25 @ 18:06 by NIYA Bruno) Systemic viral illness Weight loss Nocturnal cough with wheeze SOB (shortness of breath) Asymptomatic bradycardia Chronic systolic congestive heart failure Chronic GERD Former smoker quit 01/2022 after 34 years 1-2 ppd Resistant hypertension 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 Stents > 10 and CABG x3 vessels 05/16/2015 Panlobular emphysema 03/23/2023 advanced central lobar emphysematous changes Surgical History Stented coronary artery History of coronary artery bypass graft Social History Smoking and tobacco/nicotine status: current every day tobacco/nicotine user Quit status (tobacco/nicotine): has quit using Year quit tobacco: 2021 Former quit date comment: started age 18, quit and restarted multiple times, 2 ppd x 43 year Hx Alcohol intake: never Substance/Drug Use: current Substance/Drug use frequency: few times a month Adopted: No Caregiver/support person: No Lives independently: Yes service: No Current occupational status: unemployed Current gender identity: Male Special tomi needs: No Physical Exam Const: COMMON NORMALS: no acute distress, patient oriented x3 and healthy appearing HENMT: COMMON NORMALS: atraumatic, hearing grossly normal bilaterally, TM's normal bilaterally, moist oral mucous membranes and oropharynx normal HEAD & SCALP: atraumatic NOSE: Nasal discharge present TYMPANIC MEMBRANE: TM's normal bilaterally THROAT: posterior oropharynx normal and postnasal drainage Eye: COMMON NORMALS: Equal, round and reactive pupils present and EOMs intact bilaterally PUPIL: Yes Equal, round and reactive pupils present Neck/C-Spine: COMMON NORMALS: full ROM, no lymphadenopathy, supple and no JVD Resp: COMMON NORMALS: normal respiratory effort, No retractions and No use of accessory muscles EFFORT & INSPECTION: Yes able to speak in complete sentences and Yes symmetric chest movement AUSCULTATION: rhonchi, wheezes, diminished lung sounds and bronchial breath sounds Cardio: COMMON NORMALS: no JVD, regular rate, regular rhythm and No murmurs present (Cardio) RATE: regular rate RHYTHM: regular rhythm GI: COMMON NORMALS: Normal to inspection, nondistended, normoactive bowel sounds present, Soft to palpation and non-tender PALPATION: Yes Soft to palpation : COMMON NORMALS: Yes no CVA tenderness BLADDER/KIDNEY EXAM: Yes no CVA tenderness Back/Pelvis: COMMON NORMALS: no CVA tenderness Extremity: COMMON NORMALS: full ROM, capillary refill normal and no pedal edema Neuro: COMMON NORMALS: patient oriented x3, CN's II-XII intact bilaterally and gait normal Skin: COMMON NORMALS: no rashes or lesions noted GENERAL SKIN EXAM: no rashes or lesions noted and no erythema Course Vital Signs: Vital signs: Vital Signs Temperature 97.8 F 08/29/25 16:57 Pulse Rate 83 08/29/25 18:56 Respiratory Rate 19 H 08/29/25 18:56 Blood Pressure 114/98 08/29/25 18:56 Pulse Oximetry 94 08/29/25 18:56 Oxygen Delivery Me thod Room Air 08/29/25 16:57 MDM - URI/Sore Throat Medical Decision Making Patient is 65-year-old gentleman that presents to the ED with complaints of shortness of breath, chest tightness, worse with exertion. His workup is essentially negative. He will be treated with dexamethasone IV here, and sent home with doxycycline, for secondary infection given his COPD, as well as Medrol Dosepak. All of patient's questions answered to satisfaction. He will return to the ED if he has worsening shortness of breath. Cardiac workup is negative. Medical Records I reviewed the patient's medical records. Lab Data I reviewed the patient's lab results. 08/29/25 17:21 08/29/25 17:21 Radiology Impressions Chest X-Ray 08/29/25 17:06 IMPRESSION: No acute findings. Laboratory Results WBC 11.41 10^3/uL (3.29-11.43) 08/29/25 17:21 RBC 4.67 10^6/uL (3.85-5.65) 08/29/25 17:21 Hgb 13.90 g/dL (11.27-16.99) 08/29/25 17:21 Hct 41.8 % (37-53) 08/29/25 17:21 MCV 89.5 fl (82-101) 08/29/25 17:21 MCH 29.8 pg (27-33) 08/29/25 17:21 MCHC 33.3 g/dL (30-55) 08/29/25 17:21 RDW 12.9 % (12.1-15.1) 08/29/25 17:21 Plt Count 187 10^3/cmm (157-399) 08/29/25 17:21 MPV 9.7 fL (7.4-10.4) 08/29/25 17:21 Neut % (Auto) 84.1 % 08/29/25 17:21 Lymph % (Auto) 9.3 % 08/29/25 17:21 Baxter % (Auto) 6.1 % 08/29/25 17:21 Eos % (Auto) 0.1 % 08/29/25 17:21 Baso % (Auto) 0.2 % 08/29/25 17:21 Neut # (Auto) 9.60 10^3/uL (1.8-7.7) H 08/29/25 17:21 Lymph # (Auto) 1.1 10^3/uL (0.8-4.8) 08/29/25 17:21 Baxter # (Auto) 0.7 10^3/uL (0.2-0.9) 08/29/25 17:21 Eos # (Auto) 0.0 10^3/uL (0.0-0.8) 08/29/25 17:21 Baso # (Auto) 0.0 10^3/uL (0.0-0.1) 08/29/25 17:21 Nucleated RBC % (auto) 0 % 08/29/25 17:21 Nucleated RBCs # 0.0 /100WBC 08/29/25 17:21 Sodium 138 mmol/L (136-145) 08/29/25 17:21 Potassium 3.8 mmol/L (3.5-5.1) 08/29/25 17:21 Chloride 101 mmol/L (98-107) 08/29/25 17:21 Carbon Dioxide 23 mmol/L (22-29) 08/29/25 17:21 Anion Gap 17.8 (5-19) 08/29/25 17:21 BUN 14 mg/dL (8-23) 08/29/25 17:21 Creatinine 0.7 mg/dL (0.7-1.2) 08/29/25 17:21 GFR Calculation 113.9 mL/min (90-130) 08/29/25 17:21 Glucose 98 mg/dL (65-115) 08/29/25 17:21 Calculated Osmolality 286 mOsm/kg (285-295) 08/29/25 17:21 Calcium 8.8 mg/dL (8.5-10.5) 08/29/25 17:21 Total Bilirubin 0.7 mg/dL (0.15-1.2) 08/29/25 17:21 AST 20 U/L (0-40) 08/29/25 17:21 ALT 16 U/L (0-41) 08/29/25 17:21 Alkaline Phosphatase 101 U/L (40-130) 08/29/25 17:21 Troponin T Baseline 11 ng/L (0-15) 08/29/25 17:21 Troponin T 60 Minute 9.69 ng/L (0-15) 08/29/25 17:57 Delta Troponin T -1.31 ABS# (0-10) L 08/29/25 17:57 NT-Pro-B Natriuret Pep 1306 pg/mL (0-125) H 08/29/25 17:21 Total Protein 6.8 g/dL (6.6-8.7) 08/29/25 17:21 Albumin 4.4 g/dL (3.5-5.2) 08/29/25 17:21 Globulin 2.4 g/dL (1.3-4.6) 08/29/25 17:21 Influenza A (PCR) Negative (Negative) 08/29/25 17:16 Influenza Type B (PCR) Negative (Negative) 08/29/25 17:16 RSV (PCR) Negative (Negative) 08/29/25 17:16 SARS-CoV-2 (PCR) Negative (Negative) 08/29/25 17:16 All radiology interpretation(s) finalized by discharge EKG Data EKG 1: Interpretation: Normal sinus rhythm with left axis, left atrial enlargement, right bundle branch block, t wave inversion V1?V3, no ST segment elevation Discharge Plan Discharge Patient Disposition: Home Clinical Impression: Acute exacerbation of chronic obstructive pulmonary disease Condition: Stable Prescriptions: New doxycycline hyclate 100 mg capsule 100 mg PO BID 10 Days Qty: 20 0RF prednisone 10 mg tablets,dose pack 10 mg PO DIRECTED Qty: 27 0RF Rx Instructions: Take 4 x 3 days, take 3 x 3 days, take 2 x 2 days, take 1 x 2 days. No Action hydralazine 50 mg tablet 50 mg PO BID Qty: 60 5RF Trelegy Ellipta 100-62.5-25 mcg blister with device 1 inh inhalation Q24H Qty: 60 5RF pantoprazole 40 mg tablet,delayed release (DR/EC) See Rx Instructions .ROUTE .COMPLEX Qty: 30 2RF Dose Instruction: TAKE 1 TABLET BY MOUTH AT BEDTIME NEEDED FOR heart burn Rx Instructions: TAKE 1 TABLET BY MOUTH AT BEDTIME NEEDED FOR heart burn aspirin 81 mg tablet,delayed release (DR/EC) 81 mg PO DAILY Qty: 100 3RF losartan 25 mg tablet 25 mg PO DAILY Qty: 30 5RF albuterol sulfate 90 mcg/actuation HFA aerosol inhaler 2 inh INHALATION Q4H PRN (Reason: shortness of breath or wheezing) Qty: 6.7 2RF atorvastatin 40 mg tablet See Rx Instructions .ROUTE .COMPLEX Qty: 30 2RF Dose Instruction: TAKE 1 TABLET BY MOUTH AT BEDTIME FOR cholesterol Rx Instructions: TAKE 1 TABLET BY MOUTH AT BEDTIME FOR cholesterol carvedilol 6.25 mg tablet See Rx Instructions .ROUTE .COMPLEX Qty: 60 3RF Dose Instruction: TAKE 1 TABLET BY MOUTH TWICE DAILY FOR heart/blood pressure Rx Instructions: TAKE 1 TABLET BY MOUTH TWICE DAILY FOR heart/blood pressure Discharge Orders: Discharge ED (Routine); Ordered 08/29/25 Ordered By: Cristina Demarco Referrals: Erica Astorga DO [Primary Care Provider, Family Practice] Patient Instructions: COPD (Chronic Obstructive Pulmonary Disease) (ED), Patient Portal & Chriss Instructions Activity Restrictions/Additional Instructions: - Tylenol and ibuprofen for fever - You did receive dexamethasone which is a long-acting steroid here - On Wednesday: Start your prednisone Dosepak at the pharmacy - Also at the pharmacy: Doxycycline. Take twice daily. Take with food or you will think you are allergic to it however it is a side effect of nausea. Use a probiotic or daily active culture yogurt to avoid infectious diarrhea - Return to ED with worsening shortness of breath, fever Thank you for choosing [facility] for your healthcare needs today. You have been screened and evaluated and felt safe for discharge. Health conditions do change or evolve sometimes and as such it is important that you follow up with your Primary Doctor to be re checked, 3-5 days is a general good time frame for follow up. You are always welcome to return to the ED for re assessment if your symptoms are worsening or you have new concerns Print Language: Cypriot Coding Level of Care Code ED Tumbler Operator for Juan M Mason
[2025-08-29 17:51] LABS: Troponin(5th) Baseline 11 ng/L (0-15)
[2025-08-29 18:00] LABS: Alanine Aminotransferase 16 U/L (0-41); Albumin Level 4.4 g/dL (3.5-5.2); Alkaline Phosphatase 101 U/L (40-130); Anion Gap 17.8 (5-19); Aspartate Amino Transferase 20 U/L (0-40); Blood Urea Nitrogen 14 mg/dL (8-23); Calcium 8.8 mg/dL (8.5-10.5); Carbon Dioxide 23 mmol/L (22-29); Chloride 101 mmol/L (98-107); Creatinine Clr Calc Pharmacy 83.1585; Globulin 2.4 g/dL (1.3-4.6); Glucose 98 mg/dL (65-115); NT Pro B Type Natriuretic Pept 1306 pg/mL (0-125); Osmolality Calculated 286 mOsm/kg (285-295); Potassium 3.8 mmol/L (3.5-5.1); Sodium 138 mmol/L (136-145); Total Protein 6.8 g/dL (6.6-8.7)
[2025-08-29 18:08] LABS: Respiratory Syncytial Virus Ce NEGATIVE (Negative); SARS-CoV-2 PCR NEGATIVE (Negative)
--- NOTE | 2025-08-29 18:26 | PC.NURSE ---
sent home x2 Doxycycline tabs, instructed pt on BID instructions from provider.
[2025-08-29 18:27] VITALS: BP 147/86; PULSE 83; RESP 29; O2SAT 95
[2025-08-29 18:56] VITALS: BP 114/98; PULSE 83; RESP 19; O2SAT 94
== END 2025-08-29 18:55 | disposition home or self-care (01) ==
PROVIDERS: Emergency Provider Physician Assistant; PCP Family Medicine
DX: J44.1 Chronic obstructive pulmonary disease with (acute) exacerbation (principal); Z79.82 Long term (current) use of aspirin; Z11.52 Encounter for screening for COVID-19; Z87.891 Personal history of nicotine dependence; I11.0 Hypertensive heart disease with heart failure; I50.22 Chronic systolic (congestive) heart failure
CPT/HCPCS: 36415; 71045; 80053; 83880; 84484; 85025; 87637; 93005; 96374; 99285; J1100; J9999